=== PATIENT | male | born 1955 | race Caucasian/White ===

== ENCOUNTER → 2019-10-10 17:26 | Outpatient (CLI) | payer BC, SELFPAY ==
--- NOTE | ~2019-10-10 | XR_ITS ---
XR chest 2V 10/10/2019 17:45 Indication: Chest pain Procedure: 2 view chest Comparison: 09/27/2009 Findings: Heart size normal. There is bibasilar atelectasis. No pleural effusion or pneumothorax. The re are scattered calcified granulomas. No pleural effusion or pneumothorax. No acute osseous abnormal ity. There is diffuse idiopathic skeletal hyperostosis (DISH) of the thoracic spine. Impression: 1: Bibasilar atelectasis. Reviewed, dictated and finalized at location A. ER OPERATOR Impression: 1: Bibasilar atelectasis.
--- NOTE | ~2019-10-10 | XR_ITS ---
XR shoulder RT min 2V 10/10/2019 17:46 Indication: Right shoulder pain for 2 weeks Procedure: 4 views right shoulder Comparison: No prior studies for comparison. Findings: There are mild degenerative changes of the right acromioclavicular and glenohumeral joints. Osteopenia. Anatomic alignment. Surrounding osseous structures are unremarkable. Impression: 1: Mild polyarticular osteoarthritis. Reviewed, dictated and finalized at location A. REGATIONAL CARE PASTOR Impression: 1: Mild polyarticular osteoarthritis.
== END ==
PROVIDERS: PCP Family Medicine; Visit Provider Family Medicine
DX: M19.011 Primary osteoarthritis, right shoulder (principal); R91.8 Other nonspecific abnormal finding of lung field
CPT/HCPCS: 71046; 73030

== ENCOUNTER 2020-07-26 02:40 | Outpatient (CLI) | payer MEDICARE, OTHER, SELFPAY ==
[2020-07-26 19:51] LABS: SARS-CoV-2 RNA PCR Negative
== END 2020-07-26 02:41 | disposition home or self-care (01) ==
LOC: ANHCOVIDDT 02:40
PROVIDERS: PCP Family Medicine; Visit Provider Internal Medicine Gastroenterology
DX: Z01.812 Encounter for preprocedural laboratory examination (principal); Z20.828 Contact with and (suspected) exposure to other viral communicable diseases
CPT/HCPCS: 87635; C9803; U0003

== ENCOUNTER 2020-07-29 01:10 | Day surgery (SDC) | payer MEDICARE, OTHER, SELFPAY ==
[2020-07-22 14:35] VITALS: BMI 30.4
[2020-07-29 08:22] VITALS: BP 140/77; PULSE 66; RESP 16; TEMP 36; O2SAT 96; BMI 30.8
[2020-07-29] MEDS: LACTATED RINGERS 1,000 ML 150 ML IV CONT (08:30)
[2020-07-29 08:35] LABS: Glucose Point of Care 84 (65-105)
--- NOTE | 2020-07-29 08:49 | WPDGICN ---
Assessment and Plan Assessment and plan (1) History of colon polyps: Code(s): Z86.010 - Personal history of colonic polyps Status: Acute Assessment and Plan: Patient has a personal history of colon polyps as well as a family history of colon polyps in his father. Plan is for surveillance colonoscopy now and at least at 5 year intervals in the future. Further recommendations will be given after endoscopy. (2) Family history of colonic polyps: Code(s): Z83.71 - Family history of colonic polyps Status: Acute GI Consult Note Consult date/time: 07/29/20 08:49 HPI: Brayden Wheeler is a 65 year old male Seen in evaluation at the request of Dr. Joseph. Patient presents for screening colonoscopy. Patient's past medical history is significant for colon polyps in the past. Family history is significant that his father had colon polyps maternal aunt had colon cancer and a paternal uncle had colon cancer. Patient states that his own weight appetite bowel movements are normal. He denies abdominal pain. He has had no bleeding. Family history is noncontributory. Review of Systems Review of Systems: All systems reviewed & are unremarkable except as noted in HPI and below PMFSH Past Medical History Medical History (Updated 07/29/20 @ 08:51 by Yosi Willson MD) Right shoulder pain Family History Family History (Updated 06/28/19 @ 14:02 by DOCTOR UNKNOWN) Other Family history of arthritis Hypertension Social History Social History Years smoked: 20 Smoking status: Former smoker Tobacco type: cigarettes Smoking end date: 09/13/91 Alcohol intake: current Substance use type: does not use Gender identity (if verbalized by the patient): Male Spiritual care concerns: No Meds Home Medications and Allergies Home Medications Medication Instructions Recorded Confirmed Type amlodipine 10 mg tablet 10 mg PO DAILY #90 tablet 01/02/20 07/29/20 Rx bupropion HCl 150 mg 24 hr tablet, 150 mg PO QAM #90 tablet 01/02/20 07/29/20 Rx extended release valsartan 320 1 tablet PO DAILY #90 tablet 01/02/20 07/29/20 Rx mg-hydrochlorothiazide 12.5 mg tablet carvedilol 25 mg tablet 25 mg PO Q12H #60 tablet 02/19/20 07/29/20 Rx fenofibrate 160 mg tablet 160 mg PO DAILY #30 tablet 02/19/20 07/29/20 Rx tolterodine 4 mg capsule,extended 4 mg PO DAILY #90 cap 04/03/20 07/29/20 Rx release 24 hr lisinopril 40 mg tablet See Rx Instructions .ROUTE 06/26/20 07/29/20 Rx .COMPLEX #90 tablet escitalopram oxalate [Lexapro] 40 mg PO DAILY 07/22/20 07/29/20 History metformin 500 mg tablet,extended See Rx Instructions .ROUTE 07/26/20 07/29/20 Rx release 24 hr .COMPLEX #360 tablet Allergies Allergy/AdvReac Type Severity Reaction Status Date / Time hydrocodone AdvReac Unknown Gastrointestinal Verified 07/29/20 08:21 Upset Vital Signs Vital Signs - 24 hr 07/29/20 08:22 Temperature 96.8 F L Pulse Rate 66 Respiratory Rate 16 Blood Pressure 140/77 Pulse Oximetry 96 Exam Narrative: Exam Narrative: Physical exam reveals Vital Signs to be stable. HEENT exam unremarkable. Lungs are clear to auscultation and percussion. Heart is without murmur or extra sounds. Abdominal exam bowel sounds are present soft nontender with no organomegaly. Digital external rectal exam is normal.
--- NOTE | 2020-07-29 09:29 | WPDANESEPPF ---
Anes - Initial Pre Proc Eval Procedure: Operation Date: 07/29/20 09:30 Proposed Procedures p Screening Colonoscopy - Yosi Willson MD Date/Time: 07/29/20 09:29 Surgeon: Yosi Willson MD Pre Op Diagnosis: Hx of colon Polyps,Family Hx of colon Polyps Patient Data Age: 65 Gender: M Height: 5 ft 7 in Weight: 89.2 kg Last Vital Signs Temp 96.8 F L 07/29/20 08:22 Pulse 66 07/29/20 08:22 Resp 16 07/29/20 08:22 BP 140/77 07/29/20 08:22 Pulse Ox 96 07/29/20 08:22 Allergies Allergy/AdvReac Type Severity Reaction Status Date / Time hydrocodone AdvReac Unknown Gastrointestinal Verified 07/29/20 08:21 Upset Home Medications Medication Instructions Recorded Confirmed Type amlodipine 10 mg tablet 10 mg PO DAILY #90 tablet 01/02/20 07/29/20 Rx bupropion HCl 150 mg 24 hr tablet, 150 mg PO QAM #90 tablet 01/02/20 07/29/20 Rx extended release valsartan 320 1 tablet PO DAILY #90 tablet 01/02/20 07/29/20 Rx mg-hydrochlorothiazide 12.5 mg tablet carvedilol 25 mg tablet 25 mg PO Q12H #60 tablet 02/19/20 07/29/20 Rx fenofibrate 160 mg tablet 160 mg PO DAILY #30 tablet 02/19/20 07/29/20 Rx tolterodine 4 mg capsule,extended 4 mg PO DAILY #90 cap 04/03/20 07/29/20 Rx release 24 hr lisinopril 40 mg tablet See Rx Instructions .ROUTE 06/26/20 07/29/20 Rx .COMPLEX #90 tablet escitalopram oxalate [Lexapro] 40 mg PO DAILY 07/22/20 07/29/20 History metformin 500 mg tablet,extended See Rx Instructions .ROUTE 07/26/20 07/29/20 Rx release 24 hr .COMPLEX #360 tablet Laboratory Tests 07/29/20 08:32 POC Capillary Glucose 84 mg/dl mg/dl (65-105) Patient hx anesthesia problems: none Family hx anesthesia problems: none PMFSH Past Medical History Medical History (Updated 07/29/20 @ 09:29 by Festus Sanchez MD) Essential (primary) hypertension Mixed hyperlipidemia Right shoulder pain Type 2 diabetes mellitus without complication, without long-term current use of insulin Family History Family History (Updated 06/28/19 @ 14:02 by DOCTOR UNKNOWN) Other Family history of arthritis Hypertension Social History Social History Years smoked: 20 Smoking status: Former smoker Tobacco type: cigarettes Smoking end date: 09/13/91 Alcohol intake: current Substance use type: does not use Gender identity (if verbalized by the patient): Male Spiritual care concerns: No Anes - Eval Final PreProcedure Day of Procedure 07/29/20 09:29 Patient weight: overweight Heart: regular rate and rhythm Lungs: clear to auscultation Airway: Mallampati scale class II Neurological: alert and oriented Last oral intake: >/= 8 hours ASA classification: III Emergent: no Anesthetic plan: proceed Anesthesia type and monitoring: general GIVS and standard monitoring Informed Consent: The patient's anesthetic plan and its attendant risks and benefits were discussed with the patient/family/POA. Questions were solicited and answers provided to the satisfaction of the patient/family/POA.
[2020-07-29 09:47] VITALS: BP 129/76; PULSE 60; RESP 22; O2SAT 97
[2020-07-29 09:57] VITALS: BP 132/85; PULSE 56; RESP 18; O2SAT 96
[2020-07-29 10:07] VITALS: BP 138/78; PULSE 57; RESP 20; O2SAT 97
== END 2020-07-29 10:25 | disposition home or self-care (01) ==
PROVIDERS: PCP Family Medicine; Visit Provider Internal Medicine Gastroenterology
PROC: 0DJD8ZZ Inspection of Lower Intestinal Tract, Via Natural or Artificial Opening Endoscopic (ICD-10-PCS; CPT 45378; principal; 2020-07-29 09:30)
DX: Z12.11 Encounter for screening for malignant neoplasm of colon (principal); K64.8 Other hemorrhoids; K57.30 Diverticulosis of large intestine without perforation or abscess without bleeding; Z86.010 Personal history of colon polyps; Z83.71 Family history of colonic polyps; I10 Essential (primary) hypertension; E78.2 Mixed hyperlipidemia; E11.9 Type 2 diabetes mellitus without complications; Z79.84 Long term (current) use of oral hypoglycemic drugs; Z87.891 Personal history of nicotine dependence
CPT/HCPCS: G0105; J7120

== ENCOUNTER → 2022-07-27 15:28 | Outpatient (CLI) | payer MEDICARE, OTHER, SELFPAY ==
--- NOTE | ~2022-07-27 | XR_ITS ---
EXAMINATION: XR hip RT 2V w AP pelvis INDICATION: Right hip pain TECHNIQUE: AP view the pelvis and two views of the right hip are obtained. COMPARISON: None available FINDINGS: Bone alignment is normal. There is no fracture. There is mild osteoarthritis of the hips. P hleboliths are noted in the pelvis. There are prostatic calcifications. IMPRESSION: 1. Mild osteoarthritis of the hips. Reviewed, dictated and finalized at location F. RAMMING MANAGER
--- NOTE | ~2022-07-27 | XR_ITS ---
EXAMINATION: XR lumbar spine min 4V DATE: 07/27/2022 15:48 INDICATION: Low back pain TECHNIQUE: Anteroposterior, lateral, and bilateral oblique views of the lumbar spine, and cone-down l ateral view of the lumbosacral junction were obtained. COMPARISON: None. FINDINGS: There are 3 mm of retrolisthesis of L2 on L3 and L3 on L4 and 3 mm of anterolisthesis of L4 on L5. There is moderate loss of intervertebral disc space height at L1-2 and L5-S1. Small degenerat naa osteophytes project from the anterior endplates of multiple vertebral bodies. There is multilevel moderate facet joint osteoarthritis of the lower lumbar spine. No fracture is identified. Calcified atherosclerosis is noted. There are bridging osteophytes at multiple levels in the visualized thoraci c spine, consistent with diffuse idiopathic skeletal hyperostosis (DISH). IMPRESSION: 1. Moderate lumbar spondylosis without acute osseous abnormality. Reviewed, dictated and finalized at location F. AL CLERK
== END ==
PROVIDERS: PCP Family Medicine; Visit Provider Family Medicine
DX: M54.41 Lumbago with sciatica, right side (principal); G89.29 Other chronic pain; M47.896 Other spondylosis, lumbar region; M16.11 Unilateral primary osteoarthritis, right hip
CPT/HCPCS: 72110; 73502

== ENCOUNTER 2022-12-25 10:03 | Emergency (ER) | payer MEDICARE, OTHER, SELFPAY ==
--- NOTE | ~2022-12-25 | XR_ITS ---
[[id number] ] INDICATION: Right rib pain TECHNIQUE: Frontal projection of the upper right ribs, frontal projection of the lower right ribs, ob lique projection of all the right ribs, frontal inspiratory chest x-ray for interpretation. FINDINGS: There are no displaced rib fractures identified. There are no soft tissue abnormality see n. The lungs are clear. There are calcified granulomas in the lungs. No pneumothorax. IMPRESSION: 1:No acute displaced rib fractures. Reviewed, dictated and finalized at location B.
--- NOTE | 2022-12-25 10:14 | ED.BACK ---
HPI - Back Pain/Injury General Chief Complaint: Back Pain/Injury Stated Complaint: rt side pain Time Seen by Provider: 12/25/22 10:14 Source: patient Mode of arrival: ambulatory Limitations: no limitations History of Present Illness HPI Narrative: Mr. Wheeler is a 67-year-old male patient presenting to the clinic today with complaints of right-sided lateral rib pain. He reports he was raking leaves last week and twisted at the waist and felt a pop in his right ribs. States that he has been having ongoing pain in the right ribs since. Pain is worse with movement but not when taking a deep breath. Denies any shortness of breath or anterior chest pain. Related Data Allergies Allergy/AdvReac Type Severity Reaction Status Date / Time hydrocodone AdvReac Unknown Gastrointestinal Verified 12/25/22 10:39 Upset acetaminophen [From Vicodin] AdvReac Gastrointestinal Verified 12/25/22 10:39 Upset Review of Systems Review of Systems: Pertinent positives per HPI. Patient denies any fever, chills, rash, headache, visual changes, dizziness, cough, runny nose, sore throat, shortness of breath, chest pain, palpitations, nausea, vomiting, diarrhea, constipation, abdominal pain, or any urinary issues. [facility] Past Medical History Medical History Acute bronchitis Adult BMI 33.0-33.9 kg/sq m BMI 31.0-31.9,adult BMI 32.0-32.9,adult Body mass index (bmi) 38.0-38.9, adult (05/16/19) Chronic low back pain with right-sided sciatica X-ray of the lumbar spine on 07/27/2022 with disc space narrowing at L1-L2 and L5-S1 with moderate spondylosis. Chronic pain of right hip X-ray of the right hip and pelvis on 07/27/2022 reveals mild osteoarthritis of both hips. Contusion (~12/2021) left knee after fall COVID-19 (03/23/22) tested positive on 03/24/2022. Vaccinated. Essential (primary) hypertension Mixed hyperlipidemia Total cholesterol 193, triglycerides 173, HDL 34, LDL 130 on 12/10/2021. Obesity (BMI 30.0-34.9) Persistent microalbuminuria associated with type 2 diabetes mellitus Right shoulder pain Type 2 diabetes mellitus without complication, without long-term current use of insulin Glucose 104 and hemoglobin A1c 5.3 on 12/10/2021. Family History Family History Other Family history of arthritis Hypertension Social History Social History Years smoked: 20 Smoking status: Former smoker Tobacco type: cigarettes Smoking end date: 09/13/91 Alcohol intake: current Alcohol use details: one or two beers a year Substance use: never Substance use type: does not use Lack of Transportation: No Lack of Food: Never True Current Housing: I Have Housing Concerned About Future Housing: No Difficulty Paying Gas/Electric Bills: No Difficulty Paying for Meds: No Currently Unemployed: No Education: Master's Degree or Higher Difficulty w/ Childcare or Family Care: No Gender identity (if verbalized by the patient): Male Spiritual care concerns: No Comments At the time of my signature, I reviewed and agree with the nursing past medical, surgical, social, and family history. There is no relevant family history pertinent to the patient complaint. Exam Narrative: General: Well-developed, well nourished, in no apparent distress Head: Normocephalic, atraumatic. Cardio: Regular rate and rhythm, s1 and s2 normal, no murmur appreciated. Resp: Clear to auscultation bilaterally, no rhonchi, rales, wheezing or rubs. Musculoskeletal: No deformity, no bruising or swelling noted, tender to palpation over the right lateral rib just below the nipple line, pain worse when raising his right arm and twisting, grossly normal range of motion, muscle strength strong and equal, peripheral pulse strong, no edema, no cyanosis, normal gait and sta
[2022-12-25 10:19] VITALS: BP 130/72; PULSE 62; RESP 18; TEMP 36.9; O2SAT 94
== END 2022-12-25 10:47 | disposition home or self-care (01) ==
PROVIDERS: Emergency Provider Nurse Practitioner Family; PCP Family Medicine
DX: S29.011A Strain of muscle and tendon of front wall of thorax, initial encounter (principal); I10 Essential (primary) hypertension; E78.2 Mixed hyperlipidemia; E11.9 Type 2 diabetes mellitus without complications; Z87.891 Personal history of nicotine dependence; X50.0XXA Overexertion from strenuous movement or load, initial encounter
CPT/HCPCS: 71101; 99213; G0463

== ENCOUNTER 2023-06-05 10:02 | Inpatient (IN) | payer MEDICARE, OTHER, SELFPAY ==
[2023-06-05] VITALS (44 sets, daily range): BP systolic 104–147; BP diastolic 67–80; PULSE 70–86; RESP 12–28; TEMP 36.1–37.4; O2SAT 86–95; BMI 32.0
--- NOTE | ~2023-06-05 | XR_ITS ---
XR chest 1V portable 06/05/2023 10:49 Indication: Shortness of breath Procedure: AP portable chest Comparison: 10/10/2019 Findings: There is chronic bibasilar atelectasis/scarring. Calcified granuloma right lung base. Heart size normal. Shallow inspiration. No acute osseous abnormality. Impression: 1: Chronic bibasilar atelectasis/scarring without significant change. Reviewed, dictated and finalized at location A. Impression: 1: Chronic bibasilar atelectasis/scarring without significant change.
--- NOTE | ~2023-06-05 | CT_ITS ---
EXAMINATION: CTA chest PE protocol DATE: 06/05/2023 12:12 CDT INDICATION: Shortness of breath. Elevated d-dimer. TECHNIQUE: Computed tomographic angiography (CTA) of the chest was performed with 100 mL Omnipaque-35 0 intravenous contrast. The dose-length product was 530.30 mGy-cm. Maximum intensity projection 3D-re constructions of the aorta and other arteries were constructed by the technologist on a separate work station. Automated exposure control and iterative reconstruction technique were employed. COMPARISON: Chest dated 06/05/2023 FINDINGS: Borderline heart size. No significant pleural or pericardial effusion. There is a 1.8 cm hy perdense exophytic left renal lesion, most likely a hyperdense cyst. Recommend correlation with ultra sound. Study is technically adequate, although evaluation of lower lobe segmental and subsegmental pu lmonary arteries limited by motion and consolidation. No large central pulmonary embolism. There is m ediastinal and hilar lymphadenopathy, likely reactive. There is atherosclerosis of the aorta and clint nary arteries. There is patchy bilateral airspace consolidation predominantly in the lower lobes, alt tl there is consolidation in the right upper lobe as well, consistent with pneumonia. There is a 1 0 mm right upper lobe nodule which may represent focal consolidation although parenchymal nodule is n ot excluded. There is evidence for chronic granulomatous disease. There is nodular consolidation in t he lower lobes. No endobronchial lesion. No pneumothorax. There is a burst fracture of T10, possibly acute. Cannot exclude pathologic fracture. IMPRESSION: 1. Extensive bilateral airspace consolidation, most confluent in the lower lobes, consistent with pne umonia. There are nodular areas of consolidation with a 10 mm right upper lobe nodule present which m ay represent consolidation or parenchymal nodule. Consider follow-up low dose CT chest in 3 months. 2: No large central pulmonary embolism. 3: Mediastinal and bilateral hilar lymphadenopathy. 4: T10 burst fracture, possibly acute. Cannot exclude pathologic fracture. Correlate for history of m alignancy. Reviewed, dictated and finalized at location A. IMPRESSION: 1. Extensive bilateral airspace consolidation, most confluent in the lower lobe s, consistent with pneumonia. There are nodular areas of consolidation with a 1 0 mm right upper lobe nodule present which may represent consolidation or paren chymal nodule. Consider follow-up low dose CT chest in 3 months. 2: No large central pulmonary embolism. 3: Mediastinal and bilateral hilar lymphadenopathy. 4: T10 burst fracture, possibly acute. Cannot exclude pathologic fracture. Cooper elate for history of malignancy.
--- NOTE | 2023-06-05 10:15 | ED.GENADULT ---
HPI - General Adult General Chief complaint: Shortness of Breath/Dyspnea Stated complaint: SOB, Chest Conjestion Time Seen by Provider: 06/05/23 10:05 History of Present Illness HPI narrative: 68-year-old male presented ED for evaluation of increased shortness of breath. Patient states he just got back from vacation in [place]. Patient reports he has had increased cough and shortness of breath over the course of the last week. Patient did take a COVID test at home that was negative Related Data Home Medications Medication Instructions Recorded Confirmed cholecalciferol (vitamin D3) 50 50 mcg PO DAILY 01/12/23 01/12/23 mcg (2,000 unit) capsule mecobalamin (vitamin B12) 1,000 1,000 mcg PO DAILY 01/12/23 01/12/23 mcg chewable tablet Allergies Allergy/AdvReac Type Severity Reaction Status Date / Time hydrocodone AdvReac Unknown Gastrointestinal Verified 01/12/23 08:08 Upset acetaminophen [From Vicodin] AdvReac Gastrointestinal Verified 01/12/23 08:08 Upset Review of Systems Review of Systems: All systems reviewed & are unremarkable except as noted in HPI and below PMFSH Past Medical History Medical History (Updated 06/05/23 @ 19:40 by Dominic Bush MD) Acute bronchitis Adult BMI 33.0-33.9 kg/sq m BMI 31.0-31.9,adult BMI 32.0-32.9,adult Body mass index (bmi) 38.0-38.9, adult (05/16/19) Chronic low back pain with right-sided sciatica X-ray of the lumbar spine on 07/27/2022 with disc space narrowing at L1-L2 and L5-S1 with moderate spondylosis. Chronic pain of right hip X-ray of the right hip and pelvis on 07/27/2022 reveals mild osteoarthritis of both hips. Contusion (~12/2021) left knee after fall COVID-19 (03/23/22) tested positive on 03/24/2022. Vaccinated. Essential (primary) hypertension Mixed hyperlipidemia Total cholesterol 193, triglycerides 173, HDL 34, LDL 130 on 12/10/2021. cholesterol 134, triglycerides 118, HDL 36, LDL 78 with ratio 3.7 on 01/08/2023. Obesity (BMI 30.0-34.9) Persistent microalbuminuria associated with type 2 diabetes mellitus Right shoulder pain Rosacea Type 2 diabetes mellitus without complication, without long-term current use of insulin Glucose 104 and hemoglobin A1c 5.3 on 12/10/2021. Glucose 100 with hemoglobin A1c 5.3 on 01/08/2023. Family History Family History Other Family history of arthritis Hypertension Social History Social History Years smoked: 20 Smoking status: Former smoker Tobacco type: cigarettes Smoking end date: 09/13/91 Alcohol intake: current Alcohol use details: one or two beers a year Substance use: never Substance use type: does not use Lack of Transportation: No Lack of Food: Never True Current Housing: I Have Housing Concerned About Future Housing: No Difficulty Paying Gas/Electric Bills: No Difficulty Paying for Meds: No Currently Unemployed: No Education: Master's Degree or Higher Difficulty w/ Childcare or Family Care: No Gender identity (if verbalized by the patient): Male Spiritual care concerns: No Exam Narrative: APPEARANCE: Well appearing, no pain, no distress, well-nourished. HEAD: normocephalic, atraumatic. EYES: PERRLA/EOMI, conjunctivae clear. NOSE: Normal no drainage NECK: Supple. No adenopathy, no masses. RESPIRATORY: Rhonchi lower lobes CARDIOVASCULAR: Regular rate and rhythm without murmurs rubs or gallops. ABDOMINAL: Soft, nontender, nondistended, normal bowel sounds MUSCULOSKELETAL: Moves all extremities. Strength/ROM intact, No edema, No calf tenderness. NEURO: Alert. Cranial nerves II through XII intact. Grossly intact SKIN: Warm, dry. Normal Color Course Course Emergency Course: 68-year-old male presented ED for evaluation of worsening shortness of breath. She x-ray was ordered. COVID was ordered and D-dimer. Patient was started o
[2023-06-05] MEDS: ALBUTEROL SULFATE NEB 2.5 MG/3 ML INH 5 MG INHALATION (10:31)
[2023-06-05 10:36] LABS: Alveolar/Arterial O2 Gradient 138.1 mmHg; Fractional Inspired Oxygen 32 %; HCO3 ABG 23.4 mEq/l (22.0-26.0); Oxygen Content ABG 16.5 %vol (16.0-22.0); Oxyhemoglobin 88.4 % THb (90.0-100.0); PCO2 ABG 30.9 mmHg (35.0-45.0); PO2 ABG 53.9 mmHg (80.0-100.0); PO2 FiO2 Ratio Arterial Blood 1.68 %; Total Hemoglobin 13.3 g/dL (12.0-18.0); pH ABG 7.497 (7.350-7.450)
[2023-06-05 10:37] LABS: Device NASAL CANNULA; Modified Allen's Test Pass; Site Drawn RIGHT RADIAL
[2023-06-05 10:46] LABS: Hematocrit 38.2 % (42.0-52.0); Hemoglobin 12.7 g/dL (14.0-18.0); Mean Corpuscular HGB Conc 33.2 g/dl (32-36); Mean Corpuscular Hemoglobin 27.9 pg (26-34); Mean Platelet Volume 10.9 fl (7.4-10.4); Platelet Count Result 167 k/mm3 (150-375); Red Blood Count 4.55 M/mm3 (4.6-6.20); Red Cell Distribution Width 13.4 % (11.5-14.5); White Blood Count 10.9 K/mm3 (4.5-10.0)
[2023-06-05 10:57] LABS: INR 1.3; Prothrombin Time 17.4 Seconds (11.1-14.7)
[2023-06-05 10:58] LABS: Partial Thromboplastin Time 36.7 SECONDS (22.3-36.8)
[2023-06-05 11:00] LABS: Alanine Aminotransferase 28 U/L (6-50); Albumin Level 3.7 g/dL (3.5-5.1); Alkaline Phosphatase 50 U/L (38-126); Anion Gap 11 mmol/L (8-16); Aspartate Amino Transferase 40 U/L (17-59); Blood Urea Nitrogen 21 mg/dL (9-20); Calcium 8.2 mg/dL (8.4-10.2); Carbon Dioxide 24 mmol/L (22-30); Chloride 97 mmol/L (98-107); Estimated CRCL calculation 51 ml/min; Estimated Glomerular Filt Rate 55; Glucose 133 mg/dL (65-110); Potassium 3.5 mmol/L (3.4-5.0); Sodium 132 mmol/L (137-145)
[2023-06-05 11:03] LABS: D Dimer 3.57 ug/mL (<0.48)
[2023-06-05 11:04] LABS: NT Pro B Type Natriuretic Pept 2540 pg/mL (19.9-100)
[2023-06-05 11:14] LABS: Band Neutrophils Percent 15 % (0-6); Lymphocytes Absolute Manual 0.76 K/mm3 (1.1-4.5); Monocytes Absolute Manual 0.21 K/mm3 (0.1-0.90); Monocytes Percent Manual 2 % (3-9); Neutrophils Absolute Manual 9.91 K/mm3 (1.3-6.7); Neutrophils Percent Manual 76 % (46-73); Total Cells Counted 100
[2023-06-05 11:15] LABS: Platelet Estimate Adequate (Adequate); Schistocytes None Seen (NORMAL)
[2023-06-05 11:22] LABS: Influenza A QL RT-PCR Negative (Negative); Influenza B QL RT-PCR Negative (Negative); RSV RNA, RT-PCR Negative (Negative); SARS-CoV-2 RNA PCR Positive (Negative)
--- NOTE | 2023-06-05 11:41 | ECG_ITS ---
Measurements Intervals [place] Rate: 71 P: 20 OR: 184 QRS: -3 QRSD: 92 T: -7 QT: 420 QTc: 457 Interpretive Statements SINUS RHYTHM CONSIDER INFERIOR INFARCT, AGE INDETERMINATE BASELINE ARTIFACT- I, II, AVR ABNORMAL ECG NO PREVIOUS ECG AVAILABLE FOR COMPARISON Electronically Signed On 06-05-2023 14:42:05 CDT by Serg Mclaughlin D.O.
[2023-06-05] MEDS: DEXAMETHASONE SOD PHOS INJ 4 MG/ML VIAL IV PUSH ×2 (11:57→22:20)
[2023-06-05] MEDS: ALBUTEROL SULFATE NEB 2.5 MG/3 ML INH INHALATION (14:04)
[2023-06-05] MEDS: AZITHROMYCIN 500 MG/NS 250 ML 500 MG/250 ML BAG 250 MG IVPB (14:13)
--- NOTE | 2023-06-05 17:18 | PM.IMHP ---
H&P: HPI History of Present Illness Date/Time: 06/05/23 17:18 Chief Complaint: Difficulty breathing Narrative: This is a 68-year-old male patient with a past history of type 2 diabetes, hyperlipidemia, obesity and hypertension presents to the emergency department with shortness of breath the past week. Patient was found to be positive for COVID. D-dimer was elevated so CTA was performed. No PE but the CTA did reveal extensive bilateral airspace consolidation consistent with pneumonia. Patient was treated for concomitant bacterial pneumonia and started on dexamethasone. As patient is now requiring oxygen we will begin remdesivir. Patient denies chest pain nausea, vomiting bowel or bladder problems except chronic history frequent nocturnal urination related to prostate. CT also revealed 10 mm right upper lobe nodule which may be consolidation parenchymal nodule they recommended repeat low-dose CT in 3 months. Additionally T10 burst fracture was noted. Patient reports chronic back pain but no acute trauma or pain. Review of Systems Review of Systems: All systems reviewed & are unremarkable except as noted in HPI and below PMFSH Past Medical History Medical History Acute bronchitis Adult BMI 33.0-33.9 kg/sq m BMI 31.0-31.9,adult BMI 32.0-32.9,adult Body mass index (bmi) 38.0-38.9, adult (05/16/19) Chronic low back pain with right-sided sciatica X-ray of the lumbar spine on 07/27/2022 with disc space narrowing at L1-L2 and L5-S1 with moderate spondylosis. Chronic pain of right hip X-ray of the right hip and pelvis on 07/27/2022 reveals mild osteoarthritis of both hips. Contusion (~12/2021) left knee after fall COVID-19 (03/23/22) tested positive on 03/24/2022. Vaccinated. Essential (primary) hypertension Mixed hyperlipidemia Total cholesterol 193, triglycerides 173, HDL 34, LDL 130 on 12/10/2021. cholesterol 134, triglycerides 118, HDL 36, LDL 78 with ratio 3.7 on 01/08/2023. Obesity (BMI 30.0-34.9) Persistent microalbuminuria associated with type 2 diabetes mellitus Right shoulder pain Rosacea Type 2 diabetes mellitus without complication, without long-term current use of insulin Glucose 104 and hemoglobin A1c 5.3 on 12/10/2021. Glucose 100 with hemoglobin A1c 5.3 on 01/08/2023. Family History Family History Other Family history of arthritis Hypertension Social History Social History Smoking packs per day: 1.5 Smoking cigarettes per day: 30.0 Years smoked: 20 Smoking pack-years: 30.00 Smoking status: Former smoker Tobacco type: cigarettes Smoking end date: 09/13/91 Alcohol intake: never Alcohol use details: one or two beers a year Substance use: former Substance use type: marijuana Lack of Transportation: YES Lack of Food: Never True Current Housing: I Have Housing Concerned About Future Housing: No Difficulty Paying Gas/Electric Bills: No Difficulty Paying for Meds: No Currently Unemployed: No Education: Master's Degree or Higher Difficulty w/ Childcare or Family Care: No Gender identity (if verbalized by the patient): Male Spiritual care concerns: No Meds Home Medications and Allergies Home Medications Medication Instructions Recorded Confirmed Type carvedilol 25 mg tablet 25 mg PO Q12H #180 tabs 04/09/22 06/05/23 Rx bupropion HCl 150 mg 24 hr tablet, 150 mg PO QAM #90 tabs 07/13/22 06/05/23 Rx extended release valsartan 320 1 tablet PO DAILY #90 tabs 07/13/22 06/05/23 Rx mg-hydrochlorothiazide 12.5 mg tablet escitalopram oxalate 10 mg tablet 10 mg PO DAILY #90 tabs 11/02/22 06/05/23 Rx (Lexapro) amlodipine 10 mg tablet 15 mg PO DAILY #135 tabs 12/07/22 06/05/23 Rx atorvastatin 10 mg tablet 10 mg PO DAILY #90 tabs 12/07/22 06/05/23 Rx metformin 500 mg tablet,extended 1,
[2023-06-05 19:45] LABS: Alanine Aminotransferase 27 U/L (6-50); Estimated CRCL calculation 56 ml/min; Estimated Glomerular Filt Rate 60
[2023-06-05 19:48] LABS: INR 1.4; Prothrombin Time 18.2 Seconds (11.1-14.7)
--- NOTE | 2023-06-05 21:23 | ADMGEN ---
This patient, Brayden Wheeler, was admitted to IMU Room 202-. Patient/family oriented to hospital policies and general routines including ID bracelet, bed and alarms, visiting hours, pain management, procedures, bathroom and other care routines, personal items, smoking policy, room service/diet, and visiting hours. Information on how to activate the Rapid Response Team has been discussed. Patient/Family are encouraged to report perceived risks to care and to ask questions if they do not understand what they are told or what they should do.
[2023-06-05] MEDS: REMDESIVIR 200 MG/NS 250 ML 200 MG/250 ML BAG 250 MG IVPB (22:19)
[2023-06-05] MEDS: carvediloL 25 MG TABLET PO (23:32)
[2023-06-06] VITALS (27 sets, daily range): BP systolic 121–148; BP diastolic 62–86; PULSE 65–83; RESP 16–22; TEMP 36.3–37.2; O2SAT 91–95
[2023-06-06 00:38] LABS: Hemoglobin A1C 5.3 % (<5.7)
[2023-06-06] MEDS: DEXAMETHASONE SOD PHOS INJ 4 MG/ML VIAL IV PUSH (02:15)
[2023-06-06] MEDS: ALBUTEROL SULFATE NEB 2.5 MG/3 ML INH INHALATION ×4 (03:39→19:44)
[2023-06-06] MEDS: IPRATROPIUM BR 0.02% INH SOLN 0.5 MG/2.5 ML VIAL INHALATION ×4 (03:40→19:44)
[2023-06-06 05:05] LABS: Basophils Percent Auto 0.2 % (0.2-1.2); Hematocrit 33.3 % (42.0-52.0); Hemoglobin 11.3 g/dL (14.0-18.0); Immature Granulocyte Absolute 0.08 K/mm3 (0.00-0.031); Immature Granulocyte Percent A 0.8 % (0-0.5); Lymphocytes Absolute Auto 0.39 K/mm3 (0.9-3.2); Mean Corpuscular HGB Conc 33.9 g/dl (32-36); Mean Corpuscular Hemoglobin 28.4 pg (26-34); Mean Corpuscular Volume 83.7 fl (80-100); Monocytes Absolute Auto 0.4 K/mm3 (0.1-0.6); Monocytes Percent Auto 4.4 % (2.6-8.5); Neutrophils Absolute Auto 8.9 K/mm3 (1.3-6.7); Neutrophils Percent Auto 90.6 % (45.5-73.1); Platelet Count Result 159 k/mm3 (150-375); Red Blood Count 3.98 M/mm3 (4.6-6.20); Red Cell Distribution Width 13.3 % (11.5-14.5); White Blood Count 9.8 K/mm3 (4.5-10.0)
[2023-06-06 05:16] LABS: Alanine Aminotransferase 28 U/L (6-50); Albumin Level 3.1 g/dL (3.5-5.1); Alkaline Phosphatase 58 U/L (38-126); Anion Gap 5 mmol/L (8-16); Aspartate Amino Transferase 34 U/L (17-59); Bilirubin,Total 0.5 mg/dL (0.2-1.3); Blood Urea Nitrogen 26 mg/dL (9-20); Calcium 8.1 mg/dL (8.4-10.2); Carbon Dioxide 30 mmol/L (22-30); Chloride 99 mmol/L (98-107); Estimated CRCL calculation 52 ml/min; Estimated Glomerular Filt Rate 55; Glucose 132 mg/dL (65-110); Sodium 134 mmol/L (137-145)
[2023-06-06 05:21] LABS: INR 1.4; Prothrombin Time 18.4 Seconds (11.1-14.7)
[2023-06-06 08:13] LABS: Glucose Point of Care 132 mg/dl (65-105)
--- NOTE | 2023-06-06 10:10 | PM.IMPN ---
Progress Note: A&P Assessment and Plan (1) COVID: Onset Date: ~06/01/23 Code(s): U07.1 - COVID-19 Status: Acute Assessment and Plan: Symptoms for about 1 week and worsening, findings of significant pneumonia. Treatment with dexamethasone and remdesivir. Patient is requiring supplemental oxygenation. Wean as able. (2) Pneumonia: Code(s): J18.9 - Pneumonia, unspecified organism Status: Acute Assessment and Plan: Significant bilateral pneumonia noted, symptoms ongoing for over a week. Treatment initiated in the emergency department for concurrent bacterial pneumonia. Will continue azithromycin and ceftriaxone started 06/05 (3) Essential (primary) hypertension: Code(s): I10 - Essential (primary) hypertension Status: Acute Assessment and Plan: Stable, blood pressure reviewed on 06/06 Resume home medications (4) Mixed hyperlipidemia: Code(s): E78.2 - Mixed hyperlipidemia Status: Acute Assessment and Plan: Resume home medications (5) Type 2 diabetes mellitus without complication, without long-term current use of insulin: Code(s): E11.9 - Type 2 diabetes mellitus without complications Status: Acute Assessment and Plan: ACHS fingerstick glucose with sliding scale insulin and hold metformin Blood glucose reviewed 06/06 (6) NO on CPAP: Code(s): G47.33 - Obstructive sleep apnea (adult) (pediatric); Z99.89 - Dependence on other enabling machines and devices Status: Acute Assessment and Plan: Ordered autoPAP (7) Nocturia: Code(s): R35.1 - Nocturia Status: Acute Assessment and Plan: 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 No overnight events noted. No nausea, vomiting or diarrhea. No fevers or chills. C/o continued SOB, no CP. Review of Systems Review of Systems: 12 point review of systems was assessed and was negative except as noted in the HPI Exam Narrative: General: No acute distress, alert and oriented per baseline HEENT: Atraumatic, normocephalic, mucous membranes moist CV: Regular rate and rhythm, S1, S2 Lungs: Scattered fine crackles, diminished at bases, no wheeze Abdomen: Soft, nontender, nondistended Extremities: Normal to inspection Skin: No rashes noted, no lesions or wounds seen Psych: Euthymic, normal affect Objective Data Vital Signs Vital Signs: Vital Signs - 24 hr 06/05/23 10:12 06/05/23 10:12 06/05/23 10:26 Temperature Pulse Rate 86 78 Respiratory Rate 18 Blood Pressure 104/67 Pulse Oximetry 92 92 Oxygen Delivery Nasal Cannula Oxygen Flow Rate 3 06/05/23 10:26 06/05/23 10:44 06/05/23 10:11 Temperature Pulse Rate 78 86 Respiratory Rate 18 18 Blood Pressure Pulse Oximetry 90 Oxygen Delivery Oxygen Flow Rate 06/05/23 10:15 06/05/23 10:25 06/05/23 10:30 Temperature Pulse Rate Respiratory Rate Blood Pressure 104/67 Pulse Oximetry 86 L 91 89 L Oxygen Delivery Oxygen Flow Rate 06/05/23 10:31 06/05/23 10:49 06/05/23 11:03 Temperature Pulse Rate 76 Respiratory Rate 22 H Blood Pressure 114/71 Pulse Oximetry 93 90 90 Oxygen Delivery Oxygen Flow Rate 06/05/23 11:19 06/05/23 11:39 06/05/23 11:45 Temperature Pulse Rate 80 77 Respiratory Rate 20 20 Blood Pressure 106/72 Pulse Oximetry 90 90 92 Oxygen Delivery Oxygen Flow Rate 06/05/23 14:04 06/05/23 14:00 06/05/23 14:11 Temperature Pulse Rate 77 Respiratory Rate 20 20 Blood Pressure Pulse Oximetry 92 Oxygen Delivery Nasal
[2023-06-06] MEDS: DEXAMETHASONE 2 MG TABLET 6 MG PO (10:42)
[2023-06-06] MEDS: carvediloL 25 MG TABLET PO ×2 (10:43→20:32)
[2023-06-06] MEDS: VALSARTAN 160 MG TABLET 320 MG PO (10:43)
[2023-06-06] MEDS: metFORMIN HCL XR 500 MG TAB.SR.24H 1000 MG PO (10:43)
[2023-06-06] MEDS: ATORVASTATIN 10 MG TABLET PO (10:44)
[2023-06-06] MEDS: CHOLECALCIFEROL 1,000 UNITS TABLET 2000 UNITS PO (10:44)
[2023-06-06] MEDS: oxyBUTYnin CHLORIDE XL 5 MG TAB.ER.24 10 MG PO (10:44)
[2023-06-06] MEDS: CYANOCOBALAMIN 1,000 MCG TABLET 1000 MCG PO (10:44)
[2023-06-06] MEDS: ESCITALOPRAM OXALATE 10 MG TABLET PO (10:44)
[2023-06-06] MEDS: buPROPion HCL XL (24 HR) 150 MG TABCR PO (10:45)
[2023-06-06] MEDS: hydroCHLOROthiazide 12.5 MG CAPSULE PO (10:45)
[2023-06-06] MEDS: amLODIPine BESYLATE 5 MG TABLET 15 MG PO (10:45)
[2023-06-06] MEDS: ENOXAPARIN 40 MG/0.4 ML SYRINGE SUB-Q (10:45)
[2023-06-06] MEDS: POTASSIUM CHLORIDE 20 MEQ ER TABLET 80 MEQ PO (10:46)
[2023-06-06] MEDS: FENOFIBRATE 160 MG TABLET PO (10:46)
[2023-06-06 11:57] LABS: Glucose Point of Care 164 mg/dl (65-105)
[2023-06-06] MEDS: AZITHROMYCIN 500 MG/NS 250 ML 500 MG/250 ML BAG 250 MG IVPB (13:12)
[2023-06-06 16:42] LABS: Glucose Point of Care 146 mg/dl (65-105)
[2023-06-06] MEDS: REMDESIVIR 100 MG/NS 250 ML 100 MG/250 ML BAG 250 MG IVPB (21:10)
[2023-06-06 21:13] LABS: Glucose Point of Care 179 mg/dl (65-105)
[2023-06-07] VITALS (27 sets, daily range): BP systolic 116–156; BP diastolic 65–85; PULSE 65–98; RESP 18–22; TEMP 35.6–36.7; O2SAT 91–98
[2023-06-07] MEDS: ALBUTEROL SULFATE NEB 2.5 MG/3 ML INH INHALATION ×4 (02:06→20:53)
[2023-06-07] MEDS: IPRATROPIUM BR 0.02% INH SOLN 0.5 MG/2.5 ML VIAL INHALATION ×4 (02:06→20:53)
[2023-06-07 05:01] LABS: Basophils Percent Auto 0.3 % (0.2-1.2); Hemoglobin 11.6 g/dL (14.0-18.0); Immature Granulocyte Absolute 0.22 K/mm3 (0.00-0.031); Immature Granulocyte Percent A 1.9 % (0-0.5); Lymphocytes Absolute Auto 0.51 K/mm3 (0.9-3.2); Lymphocytes Percent Auto 4.4 % (18.3-44.2); Mean Corpuscular HGB Conc 33.1 g/dl (32-36); Mean Corpuscular Hemoglobin 28.4 pg (26-34); Mean Corpuscular Volume 85.6 fl (80-100); Mean Platelet Volume 10.9 fl (7.4-10.4); Monocytes Absolute Auto 0.6 K/mm3 (0.1-0.6); Monocytes Percent Auto 5.5 % (2.6-8.5); Neutrophils Absolute Auto 10.1 K/mm3 (1.3-6.7); Neutrophils Percent Auto 87.9 % (45.5-73.1); Platelet Count Result 188 k/mm3 (150-375); Red Blood Count 4.09 M/mm3 (4.6-6.20); Red Cell Distribution Width 13.8 % (11.5-14.5); White Blood Count 11.5 K/mm3 (4.5-10.0)
[2023-06-07 05:12] LABS: Alanine Aminotransferase 29 U/L (6-50); Alkaline Phosphatase 60 U/L (38-126); Anion Gap 9 mmol/L (8-16); Aspartate Amino Transferase 35 U/L (17-59); Bilirubin,Total 0.5 mg/dL (0.2-1.3); Blood Urea Nitrogen 43 mg/dL (9-20); Calcium 8.1 mg/dL (8.4-10.2); Carbon Dioxide 23 mmol/L (22-30); Chloride 104 mmol/L (98-107); Estimated CRCL calculation 49 ml/min; Estimated Glomerular Filt Rate 50; Glucose 135 mg/dL (65-110); INR 1.2; Potassium 3.1 mmol/L (3.4-5.0); Sodium 136 mmol/L (137-145)
--- NOTE | 2023-06-07 08:45 | PM.IMPN ---
Progress Note: A&P Assessment and Plan (1) COVID: Onset Date: ~06/01/23 Code(s): U07.1 - COVID-19 Status: Acute Assessment and Plan: Symptoms for about 1 week and worsening, findings of significant pneumonia. Treatment with dexamethasone and remdesivir, started 06/06 Patient is requiring supplemental oxygenation. Wean as able. (2) Pneumonia: Code(s): J18.9 - Pneumonia, unspecified organism Status: Acute Assessment and Plan: Significant bilateral pneumonia noted, symptoms ongoing for over a week. Treatment initiated in the emergency department for concurrent bacterial pneumonia. Will continue azithromycin and ceftriaxone started 06/05 (3) Essential (primary) hypertension: Code(s): I10 - Essential (primary) hypertension Status: Acute Assessment and Plan: Stable, blood pressure reviewed on 06/07 Resume home medications (4) Mixed hyperlipidemia: Code(s): E78.2 - Mixed hyperlipidemia Status: Acute Assessment and Plan: Resume home medications (5) Type 2 diabetes mellitus without complication, without long-term current use of insulin: Code(s): E11.9 - Type 2 diabetes mellitus without complications Status: Acute Assessment and Plan: ACHS fingerstick glucose with sliding scale insulin and hold metformin Blood glucose reviewed 06/07 (6) NO on CPAP: Code(s): G47.33 - Obstructive sleep apnea (adult) (pediatric); Z99.89 - Dependence on other enabling machines and devices Status: Acute Assessment and Plan: Ordered autoPAP (7) Nocturia: Code(s): R35.1 - Nocturia Status: Acute Assessment and Plan: 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 No overnight events noted. No nausea, vomiting or diarrhea. No fevers or chills. Review of Systems Review of Systems: 12 point review of systems was assessed and was negative except as noted in the HPI Exam Narrative: General: No acute distress, alert and oriented per baseline HEENT: Atraumatic, normocephalic, mucous membranes moist CV: Regular rate and rhythm, S1, S2 Lungs: Scattered fine crackles, diminished at bases, no wheeze Abdomen: Soft, nontender, nondistended Extremities: Normal to inspection Skin: No rashes noted, no lesions or wounds seen Psych: Euthymic, normal affect Objective Data Vital Signs Vital Signs: Vital Signs - 24 hr 06/06/23 10:00 06/06/23 10:12 06/06/23 10:13 Temperature Pulse Rate 82 78 Respiratory Rate 18 18 Blood Pressure Pulse Oximetry 93 Oxygen Delivery Nasal Cannula Oxygen Flow Rate 4 06/06/23 10:43 06/06/23 11:51 06/06/23 14:40 Temperature 97.4 F L Pulse Rate 78 83 72 Respiratory Rate 18 18 Blood Pressure 126/75 Pulse Oximetry 95 Oxygen Delivery Oxygen Flow Rate 06/06/23 15:00 06/06/23 16:00 06/06/23 12:00 Temperature 97.9 F Pulse Rate 78 77 Respiratory Rate 18 16 Blood Pressure 121/69 Pulse Oximetry 92 92 Oxygen Delivery Autopap Oxygen Flow Rate 5 06/06/23 16:00 06/06/23 10:00 06/06/23 12:00 Temperature Pulse Rate 80 82 Respiratory Rate Blood Pressure Pulse Oximetry 95 Oxygen Delivery Autopap Oxygen Flow Rate 5 06/06/23 14:00 06/06/23 16:00 06/06/23 18:00 Temperature Pulse Rate 82 79 71 Respiratory Rate Blood Pressure P
[2023-06-07] MEDS: carvediloL 25 MG TABLET PO ×2 (09:08→21:15)
[2023-06-07] MEDS: ENOXAPARIN 40 MG/0.4 ML SYRINGE SUB-Q (09:08)
[2023-06-07] MEDS: DEXAMETHASONE 2 MG TABLET 6 MG PO (09:08)
[2023-06-07] MEDS: VALSARTAN 160 MG TABLET 320 MG PO (09:08)
[2023-06-07] MEDS: amLODIPine BESYLATE 5 MG TABLET 15 MG PO (09:08)
[2023-06-07] MEDS: FENOFIBRATE 160 MG TABLET PO (09:08)
[2023-06-07] MEDS: hydroCHLOROthiazide 12.5 MG CAPSULE PO (09:09)
[2023-06-07] MEDS: PANTOPRAZOLE 40 MG TABLET PO (09:09)
[2023-06-07] MEDS: ATORVASTATIN 10 MG TABLET PO (09:09)
[2023-06-07] MEDS: buPROPion HCL XL (24 HR) 150 MG TABCR PO (09:09)
[2023-06-07] MEDS: CHOLECALCIFEROL 1,000 UNITS TABLET 2000 UNITS PO (09:09)
[2023-06-07] MEDS: CYANOCOBALAMIN 1,000 MCG TABLET 1000 MCG PO (09:09)
[2023-06-07] MEDS: ESCITALOPRAM OXALATE 10 MG TABLET PO (09:10)
[2023-06-07] MEDS: oxyBUTYnin CHLORIDE XL 5 MG TAB.ER.24 10 MG PO (09:10)
[2023-06-07 09:11] LABS: Glucose Point of Care 121 mg/dl (65-105)
[2023-06-07] MEDS: POTASSIUM CHLORIDE 20 MEQ ER TABLET 40 MEQ PO (12:24)
[2023-06-07] MEDS: SODIUM CHLORIDE 0.9% IV 1,000 ML 999 ML IV CONT (12:24)
[2023-06-07] MEDS: AZITHROMYCIN 500 MG/NS 250 ML 500 MG/250 ML BAG 250 MG IVPB (13:57)
[2023-06-07 14:11] LABS: Glucose Point of Care 156 mg/dl (65-105)
[2023-06-07 14:24] LABS: Anion Gap 9 mmol/L (8-16); Blood Urea Nitrogen 40 mg/dL (9-20); Calcium 8.4 mg/dL (8.4-10.2); Carbon Dioxide 22 mmol/L (22-30); Chloride 106 mmol/L (98-107); Estimated CRCL calculation 52 ml/min; Estimated Glomerular Filt Rate 55; Glucose 136 mg/dL (65-110); Potassium 3.5 mmol/L (3.4-5.0); Sodium 137 mmol/L (137-145)
[2023-06-07 17:52] LABS: Glucose Point of Care 133 mg/dl (65-105)
[2023-06-07] MEDS: REMDESIVIR 100 MG/NS 250 ML 100 MG/250 ML BAG 250 MG IVPB (21:15)
[2023-06-07 21:31] LABS: Glucose Point of Care 171 mg/dl (65-105)
[2023-06-08] VITALS (23 sets, daily range): BP systolic 122–144; BP diastolic 70–79; PULSE 59–99; RESP 18–20; TEMP 36.1–36.6; O2SAT 87–98
[2023-06-08] MEDS: IPRATROPIUM BR 0.02% INH SOLN 0.5 MG/2.5 ML VIAL INHALATION ×3 (02:37→14:24)
[2023-06-08] MEDS: ALBUTEROL SULFATE NEB 2.5 MG/3 ML INH INHALATION ×3 (02:37→14:24)
[2023-06-08 05:37] LABS: Basophils Absolute Auto 0.1 K/mm3 (0.0-0.1); Basophils Percent Auto 0.6 % (0.2-1.2); Hematocrit 33.8 % (42.0-52.0); Hemoglobin 11.3 g/dL (14.0-18.0); Immature Granulocyte Absolute 0.52 K/mm3 (0.00-0.031); Immature Granulocyte Percent A 4.6 % (0-0.5); Lymphocytes Absolute Auto 0.66 K/mm3 (0.9-3.2); Lymphocytes Percent Auto 5.8 % (18.3-44.2); Mean Corpuscular HGB Conc 33.4 g/dl (32-36); Mean Corpuscular Hemoglobin 28.1 pg (26-34); Mean Corpuscular Volume 84.1 fl (80-100); Mean Platelet Volume 11.1 fl (7.4-10.4); Monocytes Absolute Auto 0.7 K/mm3 (0.1-0.6); Monocytes Percent Auto 5.9 % (2.6-8.5); Neutrophils Absolute Auto 9.4 K/mm3 (1.3-6.7); Neutrophils Percent Auto 83.1 % (45.5-73.1); Platelet Count Result 219 k/mm3 (150-375); Red Blood Count 4.02 M/mm3 (4.6-6.20); Red Cell Distribution Width 13.9 % (11.5-14.5); White Blood Count 11.3 K/mm3 (4.5-10.0)
[2023-06-08 05:45] LABS: INR 1.2; Prothrombin Time 15.6 Seconds (11.1-14.7)
[2023-06-08 05:56] LABS: Alanine Aminotransferase 30 U/L (6-50); Albumin Level 2.8 g/dL (3.5-5.1); Alkaline Phosphatase 49 U/L (38-126); Anion Gap 10 mmol/L (8-16); Aspartate Amino Transferase 40 U/L (17-59); Bilirubin,Total 0.5 mg/dL (0.2-1.3); Blood Urea Nitrogen 36 mg/dL (9-20); Calcium 7.9 mg/dL (8.4-10.2); Carbon Dioxide 23 mmol/L (22-30); Chloride 108 mmol/L (98-107); Estimated CRCL calculation 56 ml/min; Estimated Glomerular Filt Rate 60; Glucose 128 mg/dL (65-110); Potassium 3.3 mmol/L (3.4-5.0); Sodium 141 mmol/L (137-145)
[2023-06-08 08:09] LABS: Glucose Point of Care 122 mg/dl (65-105)
[2023-06-08] MEDS: DEXAMETHASONE 2 MG TABLET 6 MG PO (09:07)
[2023-06-08] MEDS: oxyBUTYnin CHLORIDE XL 5 MG TAB.ER.24 10 MG PO (09:07)
[2023-06-08] MEDS: CHOLECALCIFEROL 1,000 UNITS TABLET 2000 UNITS PO (09:07)
[2023-06-08] MEDS: carvediloL 25 MG TABLET PO (09:07)
[2023-06-08] MEDS: FENOFIBRATE 160 MG TABLET PO (09:08)
[2023-06-08] MEDS: buPROPion HCL XL (24 HR) 150 MG TABCR PO (09:08)
[2023-06-08] MEDS: amLODIPine BESYLATE 5 MG TABLET 15 MG PO (09:08)
[2023-06-08] MEDS: CYANOCOBALAMIN 1,000 MCG TABLET 1000 MCG PO (09:08)
[2023-06-08] MEDS: VALSARTAN 160 MG TABLET 320 MG PO (09:08)
[2023-06-08] MEDS: ATORVASTATIN 10 MG TABLET PO (09:08)
[2023-06-08] MEDS: PANTOPRAZOLE 40 MG TABLET PO (09:08)
[2023-06-08] MEDS: ESCITALOPRAM OXALATE 10 MG TABLET PO (09:08)
[2023-06-08] MEDS: hydroCHLOROthiazide 12.5 MG CAPSULE PO (09:08)
[2023-06-08] MEDS: ENOXAPARIN 40 MG/0.4 ML SYRINGE SUB-Q (09:09)
[2023-06-08 12:11] LABS: Glucose Point of Care 129 mg/dl (65-105)
[2023-06-08] MEDS: AZITHROMYCIN 500 MG/NS 250 ML 500 MG/250 ML BAG 250 MG IVPB (13:37)
--- NOTE | 2023-06-08 15:00 | PM.DS ---
DS: Admitting Diagnosis Discharge Date 06/08/23 Admitting Diagnosis sob DS: Discharge Diagnosis Discharge Diagnosis (1) COVID: Onset Date: ~06/01/23 Code(s): U07.1 - COVID-19 Status: Acute Assessment and Plan: Symptoms for about 1 week and worsening, findings of significant pneumonia. Treatment with dexamethasone and remdesivir, started 06/06 Patient is requiring supplemental oxygenation. Wean as able. (2) Pneumonia: Code(s): J18.9 - Pneumonia, unspecified organism Status: Acute Assessment and Plan: Significant bilateral pneumonia noted, symptoms ongoing for over a week. Treatment initiated in the emergency department for concurrent bacterial pneumonia. Will continue azithromycin and ceftriaxone started 06/05 (3) Essential (primary) hypertension: Code(s): I10 - Essential (primary) hypertension Status: Acute Assessment and Plan: Stable, blood pressure reviewed on 06/07 Resume home medications (4) Mixed hyperlipidemia: Code(s): E78.2 - Mixed hyperlipidemia Status: Acute Assessment and Plan: Resume home medications (5) Type 2 diabetes mellitus without complication, without long-term current use of insulin: Code(s): E11.9 - Type 2 diabetes mellitus without complications Status: Acute Assessment and Plan: ACHS fingerstick glucose with sliding scale insulin and hold metformin Blood glucose reviewed 06/07 (6) NO on CPAP: Code(s): G47.33 - Obstructive sleep apnea (adult) (pediatric); Z99.89 - Dependence on other enabling machines and devices Status: Acute Assessment and Plan: Ordered autoPAP (7) Nocturia: Code(s): R35.1 - Nocturia Status: Acute Assessment and Plan: 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 Symptoms for about 1 week and worsening, findings of significant pneumonia.? Treatment with dexamethasone and remdesivir, started 06/06 Patient is requiring supplemental oxygenation.? Wean as able. Significant bilateral pneumonia noted, symptoms ongoing for over a week.? Treatment initiated in the emergency department for concurrent bacterial pneumonia.? Will continue azithromycin and ceftriaxone started 06/05 All symptoms resolved and patient was discharged in stable condition with close outpatient follow-up. Please see above and med rec for details. Time Spent with Patient Time attestation: Total time spent providing and/or coordinating discharge services: Exam Narrative: General: No acute distress, alert and oriented per baseline HEENT: Atraumatic, normocephalic, mucous membranes moist CV: Regular rate and rhythm, S1, S2 Lungs: Scattered fine crackles, diminished at bases, no wheeze Abdomen: Soft, nontender, nondistended Extremities: Normal to inspection Skin: No rashes noted, no lesions or wounds seen Psych: Euthymic, normal affect DS: Data Data Completed and Pending Labs on day of discharge: Labs from last 24 hours 06/08/23 06/08/23 06/08/23 12:04 07:38 04:59 WBC 11.3 H RBC 4.02 L Hgb 11.3 L Hct 33.8 L MCV 84.1 MCH 28.1 MCHC 33.4 RDW 13.9 Plt Count 219 MPV 11.1 H Immature Gran % (Auto) 4.6 H Neut % (Auto) 83.1 H Lymph % (Auto) 5.8 L Stearns % (Auto) 5.9 Eos % (Auto) 0.0 Baso % (Auto) 0.6 Lymph # (Auto) 0.66 L Stearns # (Auto) 0.7 H Eos # (A
--- NOTE | 2023-06-08 15:20 | HOMEO2EVAL ---
Evaluation was performed at [facility] Home Oxygen Evaluation RC: Home Oxygen (O2) Evaluation Start: 06/07/23 14:45 Freq: ONCE Status: Active Protocol: RPE Activity Type Activity Date Activity User E-sign Co-sign Detail Recorded Client Recorded Date Recorded By Document 06/08/23 15:00 CATRINA [email or web address] 06/08/23 15:20 CATRINA Document 06/08/23 15:01 [email or web address] [email or web address] 06/08/23 15:20 CATRINA Document 06/08/23 15:02 [email or web address] [email or web address] 06/08/23 15:20 CATRINA Document 06/08/23 15:03 [email or web address] [email or web address] 06/08/23 15:20 CATRINA Document 06/08/23 15:10 [email or web address] [email or web address] 06/08/23 15:20 CATRINA Document 06/08/23 15:15 CATRINA [email or web address] 06/08/23 15:20 CATRINA 06/08/23 06/08/23 06/08/23 15:00 15:01 15:02 Home O2 Evaluation [Oxygen] -Test Phase Resting Resting Resting -Oxygen Delivery Room Air Nasal Cannula Nasal Cannula -Oxygen Flow Rate (L/min) 1 2 [Pulse Oximetry] -Pulse Oximetry (90-100 %) 87 L 87 L 87 L [Pulse Rate] -Pulse Rate (60-100 beats/min) 89 [Comments] -Home Oxygen Evaluation Comments [Charges] -Treatment Charges O2 Evaluation - Inpatient 06/08/23 06/08/23 06/08/23 15:03 15:10 15:15 Home O2 Evaluation [Oxygen] -Test Phase Resting Exercise Resting -Oxygen Delivery Nasal Cannula Nasal Cannula Nasal Cannula -Oxygen Flow Rate (L/min) 3 3 3 [Pulse Oximetry] -Pulse Oximetry (90-100 %) 92 90 94 [Pulse Rate] -Pulse Rate (60-100 beats/min) 99 82 [Comments] -Home Oxygen Evaluation Comments PT REQUIRES 3 L HOME O2 WITH REST AND ACTIVITY [Charges] -Treatment Charges
--- NOTE | 2023-06-08 15:30 | PCRCNOTE ---
HOME O2 EVAL COMPLETED. PT REQUIRES 3 L REST AND ACTIVITY. PT HAS CPAP WITH [facility], WILL ARRANGE HOME O2 WITH [facility] WELL. O2 TANK FOR TRANSPORT HOME WILL BE IN OR OUTSIDE OF PATIENT ROOM. ALL PAPERWORK AND ORDER ARE FAXED AND CALLED NELLY WITH [facility] TO UPDATE, ANTICIPATE D/C TODAY.
== END 2023-06-08 18:59 | disposition home or self-care (01) | DRG 177 ==
LOC: ANHED 10:40 → ANHIMU 13:02
PROVIDERS: Nurse Practitioner; Admitting Provider Chiropractor; Emergency Provider Emergency Medicine; PCP Family Medicine; Visit Provider Student in an Organized Health Care Education/Training Program
DX: U07.1 COVID-19 (principal); J12.82 Pneumonia due to coronavirus disease 2019; J15.9 Unspecified bacterial pneumonia; N17.9 Acute kidney failure, unspecified; I10 Essential (primary) hypertension; E78.2 Mixed hyperlipidemia; E11.9 Type 2 diabetes mellitus without complications; G47.33 Obstructive sleep apnea (adult) (pediatric); R35.1 Nocturia; E86.0 Dehydration; E66.9 Obesity, unspecified; M47.897 Other spondylosis, lumbosacral region; M16.0 Bilateral primary osteoarthritis of hip; Z87.891 Personal history of nicotine dependence; Z68.32 Body mass index [BMI] 32.0-32.9, adult; Z86.16 Personal history of COVID-19
CPT/HCPCS: 36415; 36600; 71045; 71275; 80048; 80053; 82565; 82805; 82948; 83036; 83880; 84460; 85025; 85380; 85610; 85730; 87040; 87070; 87205; 87637; 93005; 94618; 94640; 96365; 96367; 96372; 96375; 96376; 97161; 97165; 99285; A9270; G0378; J0248; J0456; J0696; J1100; J1650; J7030; J8540; Q9967

== ENCOUNTER 2023-10-04 14:18 | Outpatient (CLI) | payer MEDICARE, OTHER, SELFPAY ==
--- NOTE | ~2023-10-04 | CT_ITS ---
EXAMINATION:CT diagnostic chest wo con DATE: 10/04/2023 14:39 INDICATION: Abnormal findings on diagnostic imaging. TECHNIQUE: Computed tomography (CT) of the chest was performed without intravenous contrast. Automate d exposure control and iterative reconstruction technique were employed. The dose-length product (DLP ) was 239.09 mGy-cm. COMPARISON: Chest CT 06/05/2023, chest single view 06/05/2023 FINDINGS: Calcified pulmonary nodules and calcified hilar lymph nodes are consistent with old granulo matous disease. There is mild atelectasis in the inferior lungs. No pleural effusion. The heart size is normal. There are coronary artery calcifications. No pericardial effusion. There is a macrocalcifi cation in right thyroid lobe. There are bridging endplate osteophytes at multiple levels in the spine , consistent with diffuse idiopathic skeletal hyperostosis (DISH). At T10, there is a chronic ununite d compression fracture. IMPRESSION: 1. Interval resolution of the previously described right upper lobe pulmonary nodule. Reviewed, dictated and finalized at location E. SHING MACHINE TENDER IMPRESSION: 1. Interval resolution of the previously described right upper lobe pulmonary n odule.
== END 2023-10-04 14:19 | disposition home or self-care (01) ==
PROVIDERS: PCP Family Medicine; Visit Provider Nurse Practitioner Family
DX: R91.1 Solitary pulmonary nodule (principal)
CPT/HCPCS: 71250

== ENCOUNTER → 2025-05-07 09:17 | Outpatient (CLI) | payer MEDICARE, OTHER, SELFPAY ==
--- NOTE | ~2025-05-07 | XR_ITS ---
XR hip RT min 2V 05/07/2025 09:45 Indication: Right hip pain Procedure: 2 views right hip Comparison: 07/27/2022 Findings: Mild-moderate osteoarthritis of the right hip. No fracture or traumatic malalignment. Mild osteitis pubis. Impression: 1: No acute fracture. Reviewed, dictated and finalized at location O. Impression: 1: No acute fracture.
--- NOTE | ~2025-05-07 | XR_ITS ---
XR lumbar spine min 4V 05/07/2025 09:45 Indication: Low back pain Procedure: 5 views lumbar spine Comparison: 07/27/2022 Findings: There is stable sclerosis of L1 without significant change, likely representing a bone island given the lack of change. There is disc narrowing at all lumbar levels. There is degenerative retrolisthesis at L3-4 with anterolisthesis at L4-5 and L5-S1. Prominent bridging osteophytes at T12-L1. There is dextroscoliosis. Impression: 1: Severe lumbar spondylosis. 2: Stable sclerosis of L1 vertebral body. Given the lack of interval change this likely represents benign bone island. Reviewed, dictated and finalized at location O. Impression: 1: Severe lumbar spondylosis. 2: Stable sclerosis of L1 vertebral body. Given the lack of interval change thi s likely represents benign bone island.
--- OUTSIDE RECORDS SUMMARY | 2025-05-07 09:53 | XMS_ITS | Encounter Summary ---
Author Organization [facility] Address [address] [place] [address] Care Team Providers Care Equine Breeder Name Role Phone Jasmeet Joseph MD Primary Care Provider [phone] Encounter Details Date Type Department Care Team (Late st Contact Info) Description 08/02/2018 Lab Requisition [facility] Care DermPath Lab [address] [place] [address] Davon Parikh MD [address] [place] [id number] Social History Tobacco Use Types Packs/Day Years Used Date Smoking Tobacco: Never Assessed Sex and Gender Information Value Date Recorded Sex Assigned at Not on file Legal Sex Male 6:36 PM NUT GRINDER Gender Identity Not on file Sexual Orientation Not on file documented as of this encounter Plan of Treatment Not on file documented as of this encounter Procedures Procedure Name Priority Date/Time Associated Diagnosis Comments DERMATOPATHOLOGY Routine 08/01/2018 12:0 0 AM NUT GRINDER documented in this encounter Results * DERMATOPATHOLOGY (08/01/2018 12:00 AM NUT GRINDER) Case Report Dermatopathology Report Case: [id number] Authorizing Provider: Davon Parikh MD Collected: 08/01/2018 12:00 AM Pathologist: Carlie Laureano MD Received: 08/02/2018 11:52 AM Specimen: Skin, left lateral lower eyelid 8 12:32 PM N[facility] DERMATOPATHOLOGY LABORAT[facility] Final Diagnosis Specimen A. 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 The specimen consists of a punch biopsy measuring 3x2x2 mm. Jar 0. 12:32 PM [facility] DERMATOPATH[facility] Microscopic Description Specimen A. SKIN, left lateral lower eyelid: There is focal parakeratosis and mild spongiosis of the epidermis. A mild perivascular and perifollicular inflammatory infiltrate composed predominantly of lymphocytes with scattered neutrophils is noted in the upper and mid dermis. Dilated thin-walled superficial dermal blood vessels are observed. Solar elastosis and dermal edema are present. PAS stain is negative for fungus or a thickened basement membrane. Gram stain is negative for bacteria. Colloidal iron fails to reveal increased dermal mucin. COMMENT: The histologic differential diagnosis includes rosacea, periorificial dermatitis and a chronic eczematous dermatitis. The dermal edema could represent an element of solid facial edema and, given the presence of neutrophils, cellulitis could be a additional consideration. Clinicopathologic correlation is recommended. 12:32 PM [facility]ERMATOPATH[facility] Disclaimer An external and internal positive and negative controls are appropriate for the histochemical, immunohistochemical and immunofluorescence stain(s) in this case (if any), except where stated explicitly. The performance characteristics of the stain(s) cited in this report were developed and its performance characteristic determined by the Dermatopathology Laboratory at [facility]. These tests need not be, and therefore are not, approved by the [place] Food and Drug Administration. The tests are used for clinical purposes. Billing Codes Specimen Charges Stain Charges 39168 1 [id number] 1 1 1 12:32 PM [facility] DERMATOPATH[facility]Y [facility] Embedded Images 12:32 PM [facility]MAT[facility] Pathology/Cytolog y TISSUE SPECIMEN FROM SKIN / Unknown 08/01/2018 08/02/2018 11:52 AM [facility] Davon Parikh MD LAB - PATHOLOGY/CYTOLOGY ORD ERABLES Final Result DERMATOPATHOLOGY LABORATORY [facility] - Department of Dermatology [facility] [facility] 5th Floor Lab [address] [phone] documented in this encounter Visit Diagnoses Not on filedocumented in this encounter Care Teams Equine Breeder Relationship Specialty Start Date End Date Jasmeet Joseph MD PCP - General 11/16/13 documented as of this encounter
--- OUTSIDE RECORDS SUMMARY | 2025-05-07 09:53 | XMS_ITS | Clinical Summary ---
Author Organization [facility] Address [address] [place] [address] Care Team Providers Care Software Configuration Manager Name Role Phone Jasmeet Joseph MD Primary Care Provider [phone] Source Comments [facility],non-owned Affiliates and Associated Physician Practices is amultiple site organization consisting of ambulatory clinics and hospital sitesin [place], [place], [place] and [place]. This disclosure is being madepursuant to the Care Everywhere program and may not contain all information available regarding this patient. 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 Gender Identity Not on file Sexual Orientation Not on file Plan of Treatment Health Maintenance Due Date Last Done Comments COLOGUARD (AGES 45-75) - COL ON CA SCREENING 1954 COLON MONITORING 1954 COLONOSCOPY - COLON CA SCREENING 1954 CT COLONOGRAPHY - COLON CA SCREENING 1954 Colorectal Cancer Screening 1954 FIT - COLON CA SCREENING 1954 FLEX SIG - COLON CA SCREENING 1954 LIPID TESTING 1954 HEPATITIS C SCREENING 05/03/1972 DTAP/TDAP/TD VACCINES (1 - Tdap) 1973 PNEUMOCOCCAL VACCINE 50+ (1 of 1 - PCV) 2004 ZOSTER VACCINE (1 of 2) 2004 COVID-19 VACCINE ( - 2023-2 5 season) 2024 DEPRESSION SCREENING 09/13/2024 INFLUENZA VACCINE (#1) 2025 Respiratory Syncytial Virus (RSV) Vaccine Pt: or over 60 yrs (1 - 1-dose 75+ series) 2029 HEPATITIS B VACCINE Aged Out No longe r eligible based on patient's age to complete this topic HIB VACCINE Aged Out No longer eligi ble based on patient's age to complete this topic HPV VACCINE Aged Out No longer eligi ble based on patient's age to complete this topic MENINGOCOCCAL (Group B) VACC INE SHARED DECISION-MAKING Aged Out No longer eligibl e based on patient's age to complete this topic MENINGOCOCCAL GROUPS A/C/Y/W VACCINE Aged Out No longer eligible b ased on patient's age to complete this topic Insurance [facility] Care Teams Software Configuration Manager Relationship Specialty Start Date End Date Jasmeet Joseph MD PCP - General 11/16/13
--- OUTSIDE RECORDS SUMMARY | 2025-05-07 09:53 | XMS_ITS | Clinical Summary ---
Author Organization [facility] [place] [address] Address [address] [place] [address] Care Team Providers Care Tunnel Worker Name Role Phone Jasmeet Joseph MD Primary Care Provider [phone] Allergies Active Allergy Reactions Criticality Noted Date Comments Hydrocodone-Acetaminophen Nausea & Vomiting Low Medications valsartan-hydroch lorothiazide (DIOVAN-HCT) 320-12.5 mg per tablet Take 1 tablet by mouth daily 4 Active buPROPion XL (WELLBUTRIN XL) 300 mg 24 hr tablet Take 1 tablet (300 mg total) by mouth every morning 4 Active fenofibrate (TRIGLIDE) 160 mg tablet Take 1 tablet (160 mg total) by mouth daily 4 Active metFORMIN XR (GLUCOPHAGE XR) 500 mg 24 hr tablet Take 2 tablets (1,000 mg total) by mouth 2 (two) times a day 4 Active carvediloL (COREG) 25 mg tablet Take 1 tablet (25 mg total) by mouth every 12 (twelve) hours 4 Active amLODIPine (NORVASC) 10 mg tablet TAKE 1 & 1/2 (ONE & ONE-HALF) TABLETS BY MOUTH ONCE DAILY 3 Active atorvastatin (LIPITOR) 10 mg tablet Take 1 tablet (10 mg total) by mouth daily 3 Active escitalopram (LEXAPRO) 10 mg tablet Take 1 tablet (10 mg total) by mouth daily 4 Active oxyBUTYnin XL (DITROPAN-XL) 10 mg 24 hr tablet Take 1 tablet (10 mg total) by mouth daily 4 Active albuterol HFA (PROVENTIL HFA,VENTOLIN HFA,PROAIR HFA) 90 mcg/actuation inhaler Inhale 2 puffs every 6 (six) hours as needed for wheezing Active fluticasone propionate (FLONASE) 50 mcg/actuation nasal spray Administer 1 spray into each nostril daily Active tamsulosin (FLOMAX) 0.4 mg extended release capsule Take 1 capsule (0.4 mg total) by mouth daily 4 Active calcium carbonate-vitamin D3 2,500 mg (1,000 mg elemental)-800 unit tablet Take by mouth Acti ve cyanocobalamin, vitamin B-12, 1,000 mcg/mL drops Take by mouth Active sm-srh-fscvr-K1-l ycopen-lutein [id number] mcg tablet Take by mouth Activ e om 4-nqa-xtg-B12-FA- B6-phytost 500 mg-500 mcg -1 mg-12.5 mg capsule Take by mouth Active aspirin (Enteric Coated Aspirin) 81 mg enteric coated tabletIndications :Coronary artery calcification seen on CAT scan Take 1 tablet (81 mg total) by mouth daily 4 Active nitroglycerin (NITROSTAT) 0.[address] 1 tablet (0.4 mg total) under the tongue every 5 (five) minutes as needed for chest pain May repeat dose q 5 min, up to 3 doses total 30 tablet 1 5 10/05/19 26 Active Active Problems Problem Noted Date Diagnosed Date Chest pain 10/05/2024 NDIAYE (dyspnea on exertion) 10/05/2024 Abnormal stress test 10/05/2024 Coronary artery calcification seen on CAT scan 0 12/06/2023 Essential hypertension 12/06/2023 Mixed hyperlipidemia 12/06/2023 Surgical History Surgery Date Site/Laterality Comments HERNIA REPAIR VASECTOMY Medical History Medical History Date Comments Anxiety Cataract Depression Diabetes mellitus (HCC) Hypertension Chest pain NDIAYE (dyspnea on exertion) Abnormal stress test GERD (gastroesophageal reflux disease) Type 2 diabetes mellitus Family History Medical History Relation Name Comments Anemia Father Bernardino Wheeler Cancer Father Bernardino Weheler Diabetes Father Bernardino Wheeler Hearing loss Father Bernardino Wheeler Heart attack Father Bernardino Wheeler Alzheimer's disease Mother Leny Wheeler Arthritis Mother Leny Wheeler Cancer Mother Leny Wheeler Hypertension Mother Leny Wheeler Memory loss Mother Leny Wheeler Alzheimer's disease Mother's Sister 1 Brea Mina Alzheimer's disease Mother's Sister 2 [place] Early Asthma Sister Breonna Salas COPD Sister Breonna Salas Relation Name Status Comments Father Bernardino Wheeler Mother Leny Wheeler Mother's Sister 1 Brea Mina Mother's Sister 2 Estjustina Early Sister Breonna Salas Social History Tobacco Use Types Packs/Day Years Used Date Smoking Tobacco: Former Cigarettes 1 30 Smokeless Tobacco: Never Tobacco Cessation:Counseling Given: Not Answered Personal Safety Answer Date Recorded Have you ever been in or are you currently in a harmful physical or emotional relationship or is someone making you feel afraid or unsafe? 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 Gender Identity Not on file Sexual Orientation Not on file Obstetrics History Last Filed Vital Signs Vital Sign Reading Time Taken Comments Blood Pressure 120/70 12/04/2024 9:58 AM CDT Pulse 63 12/04/2024 9:58 AM CDT Temperature 37.3 C (99.2 F) 10/11/2024 10:05 AM POCKET MAKER Respiratory Rate 18 10/11/2024 10:05 AM POCKET MAKER Oxygen Saturation 96% 12/04/2024 9:58 AM CDT Inhaled Oxygen Concentration - - Weight 91.9 kg (202 lb 9.6 oz) 12/04/2024 9:58 A M CDT Height 170.2 cm (5' 7) 12/04/2024 9:58 AM CDT Body Mass Index 31.73 12/04/2024 9:58 AM CDT Plan of Treatment Health Maintenance Due Date Last Done Comments Colon Cancer Screening-Colonoscopy 1955 Depression Screening 1954 Hepatitis C Screening 1954 DTaP/Tdap/Td Vaccine (1 - Tdap) 1965 Hepatitis B Screening 1972 Zoster Vaccine (2 of 2) 11/03/2018 09/08/2018 Abdominal Aortic Aneurysm (A AA) Screen 2019 Well Visit 65+ 2019 Covid-19 Vaccine (2023-2 5 season) 2024 05/29/2022, 12/13/2021, 06/13/2021, Additional history exists Influenza Vaccine (#1) 2025 , 06/11/2022, 05/17/2021, Additional history exists Fall Risk Assessment 10/11/2025 10/11/2024 Pneumococcal vaccine 65+ Completed 03/31/2023, 12/2018 Medical Devices Implanted Type [employer] Sales Representative Device Identifier Shelf Expiration Date Model / Serial / Lot [facility] [employer] [facility] Device Closure Vascade Od5 Fr Femoral Artery [id number] - [id number] Implanted:Qty: 1 on 10/11/2024 by Hao Mcmahon MD at [facility] 06/20/2026 [id number] / / [id number] Insurance MEDICARE [facility] Care Teams Tunnel Worker Relationship Specialty Start Date End Date Jasmeet Joseph MD [address] [address] PCP - General Family Medicine 10/07/23
--- OUTSIDE RECORDS SUMMARY | 2025-05-07 09:53 | XMS_ITS | Clinical Summary ---
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 Gender Identity Not on file Sexual Orientation Not on file Plan of Treatment Health Maintenance Due Date Last Done Comments Colorectal Cancer Screening Colonoscopy (10 Years) 1954 Hepatitis C 1972 DTaP, Tdap and Td Vaccines ( 1 - Tdap) 1973 Pneumococcal Vaccine: 50+ Ye ars (1 of 1 - PCV) 2004 Zoster Vaccines (1 of 2) 2004 COVID-19 Vaccine ( - 2023-2 5 season) 2024 RSV Immunization or 60+ Years (1 - 1-dose 75+ series) 2029 Meningococcal B Vaccine Aged Out No l onger eligible based on patient's age to complete this topic Meningococcal Vaccine Aged Out No evangelina andrés eligible based on patient's age to complete this topic RSV Immunizations Under 20 Months Aged Out No longer eligible based on patient's age to complete this topic
== END ==
PROVIDERS: PCP Family Medicine; Visit Provider Family Medicine
DX: M54.41 Lumbago with sciatica, right side (principal); G89.29 Other chronic pain; M25.551 Pain in right hip; M47.896 Other spondylosis, lumbar region
CPT/HCPCS: 72110; 73502

== ENCOUNTER 2025-08-06 02:05 | Day surgery (SDC) | payer MEDICARE, OTHER, SELFPAY ==
[2025-08-06 10:11] VITALS: BP 147/52; PULSE 57; RESP 18; TEMP 36.1; O2SAT 98
[2025-08-06] MEDS: LACTATED RINGERS 1,000 ML 150 ML IV CONT (10:21)
--- NOTE | 2025-08-06 10:33 | WPDANESEPPF ---
Anes - Initial Pre Proc Eval Procedure: Operation Date: 08/06/25 11:30 Proposed Procedures p Screening Colonoscopy - Tristen Galeana MD Date/Time: 08/06/25 10:33 Surgeon: Tristen Galeana MD Pre Op Diagnosis: Personal history of colon polyps, unspecified Patient Data Age: 70 Gender: M Height: 1.7 m Weight: 84.5 kg Last Vital Signs Temp 97 F L 08/06/25 10:11 Pulse 57 L 08/06/25 10:11 Resp 18 08/06/25 10:11 BP 147/52 H 08/06/25 10:11 Pulse Ox 98 08/06/25 10:11 O2 Del Method Room Air 08/06/25 10:11 Allergies Allergy/AdvReac Type Severity Reaction Status Date / Time hydrocodone AdvReac Unknown Gastrointestinal Verified 08/06/25 10:08 Upset acetaminophen (From Vicodin) AdvReac Gastrointestinal Verified 08/06/25 10:08 Upset Home Medications ?Medication ?Instructions ?Recorded ?Confirmed ?Type cholecalciferol (vitamin D3) 50 2,000 unit PO DAILY 08/02/23 08/01/25 History mcg (2,000 unit) capsule cyanocobalamin (vitamin B-12) 1,000 mcg PO DAILY 08/02/23 08/01/25 History 1,000 mcg tablet fluticasone propionate 50 1 spray intranasal BID #48 grams 08/02/23 08/01/25 Rx mcg/actuation nasal spray,suspension (Flonase Allergy Relief) bupropion HCl 300 mg 24 hr tablet, 300 mg PO QAM #90 tabs 09/11/24 08/01/25 Rx extended release (Wellbutrin XL) metformin 500 mg tablet,extended 1,000 mg (2 x 500 mg) PO BID #360 10/23/24 08/01/25 Rx release 24 hr tabs escitalopram oxalate 10 mg tablet 10 mg PO DAILY #90 tabs 11/20/24 08/01/25 Rx (Lexapro) carvedilol 25 mg tablet 25 mg PO Q12H #180 tabs 12/04/24 08/06/25 Rx atorvastatin 10 mg tablet 10 mg PO DAILY #90 tabs 12/25/24 08/01/25 Rx albuterol sulfate 90 mcg/actuation 1 - 2 inh inhalation Q4-6H PRN 01/29/25 08/01/25 Rx aerosol inhaler (Ventolin HFA) shortness of breath or wheezing #8.5 grams aspirin 81 mg tablet 81 mg PO DAILY 03/07/25 08/01/25 History tamsulosin 0.4 mg capsule 0.4 mg PO QHS #90 caps 03/26/25 08/01/25 Rx fenofibrate 160 mg tablet 160 mg PO DAILY #90 tabs 05/03/25 08/01/25 Rx amlodipine 10 mg tablet 15 mg (1.5 x 10 mg) PO DAILY #135 05/07/25 08/01/25 Rx tabs oxybutynin chloride 10 mg 10 mg PO DAILY #90 tabs 08/06/25 Rx tablet,extended release 24 hr valsartan 320 1 tablet PO DAILY #90 tabs 08/06/25 Rx mg-hydrochlorothiazide 12.5 mg tablet Laboratory Tests 08/06/25 10:19 POC Capillary Glucose 112 H mg/dl (65-105) Patient hx anesthesia problems: none Family hx anesthesia problems: none Results Review: All pre-operative results and documents have been reviewed as part of the pre-operative evaluation. [facility] Past Medical History Medical History Chronic kidney disease (CKD) stage G3a/A3, moderately decreased glomerular filtration rate (GFR) between 45-59 mL/min/1.73 square meter and albuminuria creatinine ratio greater than 300 mg/g (~02/21/24) BUN 21, creatinine 1.53 with GFR 49 on 02/21/2024. BUN 27, creatinine 1.37 with GFR 55 on 09/27/2024. The BUN 27, creatinine 1.78 with GFR 40 on 05/28/2025. Chronic kidney disease (CKD) stage G3b/A3, moderately decreased glomerular filtration rate (GFR) between 30-44 mL/min/1.73 square meter and albuminuria creatinine ratio greater than 300 mg/g BUN 21, creatinine 1.53 with GFR 49 on 02/21/2024. BUN 27, creatinine 1.37 with GFR 55 on 09/27/2024. The BUN 27, creatinine 1.78 with GFR 40 on 05/28/2025. BMI 29.0-29.9,adult Edema, lower extremity Diastolic dysfunction without heart failure Screening for diabetic retinopathy no retinopathy 12/27/2023. No retinopathy 10/19/2024. no retinopathy 04/23/2025. No retinopathy 05/30/2025. Coronary artery calcification seen on CAT scan (~10/04/23) coronary artery calcifications on CT of the chest 10/04/2023. Lexiscan stress test 03/01/2024 with ejection fraction 62% with no EKG changes. Small area of apical and apical lateral ischemia noted. Echo on 02/28/2024 with ejection fraction 61% with mild LVH and mild diastolic dysfunction. Catheterization September, with mild irregularities in the coronary arteries. DISH (diffuse idiopathic skeletal hyperostosis) [facility] noted on CT of the chest 10/04/2023. Calcification right Lobe of thyroid. Compression fracture T10 noted. Protein in urine 2+ protein 07/28/2023. 1+ protein on urinalysis 02/21/2024. 2+ protein on 09/27/2024. 2+ protein 05/28/2025. At moderate risk for fall Anemia hemoglobin 12.8 on 07/28/2023. Hemoglobin 13.6 on 02/21/2024. Hemoglobin 13.1 with iron 71 with 19% saturation and ferritin 161 on 09/27/2024. Hemoglobin 12.2 with iron 65 with 18% saturation and ferritin 181 with vitamin B12 1066 and folic acid 16.5 on 05/28/2025. Encounter for prostate cancer screening PSA 2.02 on 07/28/2023. PSA 1.56 on 09/27/2024. Abnormal computed tomography angiography (CTA) 10 mm nodule right upper lobe with need for recheck in 3 months. Right upper lobe nodule resolved on repeat CT of the chest 10/04/2023. ERIC (acute kidney injury) Pneumonia COVID (~06/01/23) Second episode with pneumonia 06/05/2023. Rosacea BMI 32.0-32.9,adult Chronic low back pain with right-sided sciatica X-ray of the lumbar spine on 07/27/2022 with disc space narrowing at L1-L2 and L5-S1 with moderate spondylosis. X-ray of the lumbar spine on 05/07/2025 reveals diffuse severe degenerative disc disease and arthritis. Chronic pain of right hip X-ray of the right hip and pelvis on 07/27/2022 reveals mild osteoarthritis of both hips. X-ray of the right hip on 05/07/2025 reveals mild to moderate osteoarthritis. Acute bronchitis COVID-19 (03/23/22) tested positive on 03/24/2022. Vaccinated. Contusion (~12/2021) left knee after fall Obesity (BMI 30.0-34.9) Persistent microalbuminuria associated with type 2 diabetes mellitus Microalbumin ratio elevated at 1238 on 07/28/2023. Elevated at 885 on 09/27/2024. Elevated at 736 on 05/28/2025. Adult BMI 33.0-33.9 kg/sq m BMI 31.0-31.9,adult Right shoulder pain Body mass index (bmi) 38.0-38.9, adult (05/16/19) Essential (primary) hypertension Mixed hyperlipidemia Total cholesterol 193, triglycerides 173, HDL 34, LDL 130 on 12/10/2021. cholesterol 134, triglycerides 118, HDL 36, LDL 78 with ratio 3.7 on 01/08/2023. Total cholesterol 130, HDL 39, triglycerides 78, LDL 75 with ratio 3.3 on 07/28/2023. Cholesterol 126, triglycerides 107, HDL 34, LDL 73 with ratio 3.7 on 02/21/2024.Cholesterol 119, triglycerides 91, HDL 40, LDL 62 with ratio 3.0 on 09/27/2024. Cholesterol 124, triglycerides 86, HDL 36, LDL 71 with ratio of 3.4 on 05/28/2025. Encounter for prostate cancer screening Type 2 diabetes mellitus without complication, without long-term current use of insulin Glucose 104 and hemoglobin A1c 5.3 on 12/10/2021. Glucose 100 with hemoglobin A1c 5.3 on 01/08/2023. Glucose 92 with hemoglobin A1c 5.2 and microalbumin ratio of 1238 on 07/28/2023. Fasting glucose 94 with hemoglobin A1c 5.7 on 02/21/2024. Glucose 101, hemoglobin A1c 5.5 with urine microalbumin ratio of 885 with GFR 55 on 09/27/2024. Glucose 93, hemoglobin A1c 5.5, urine microalbumin ratio of 736 with GFR 40 on 05/28/2025. Surgical History Surgical History History of cataract surgery both eyes- December 12 right eye December 19 left eye Family History Family History Other Family history of arthritis Hypertension Social History Social History Smoking packs per day: 1.5 Smoking cigarettes per day: 30.0 Years smoked: 20 Smoking pack-years: 30.00 Smoking status: Former smoker Tobacco type: cigarettes Smoking end date: 09/13/91 Alcohol intake: never Alcohol use details: one or two beers a year Substance use: former Substance use type: marijuana Lack of Transportation: YES Lack of Food: Never True Current Housing: I Have Housing Concerned About Future Housing: No Difficulty Paying Gas/Electric Bills: No Difficulty Paying for Meds: No Currently Unemployed: No Education: Master's Degree or Higher Difficulty w/ Childcare or Family Care: No Living arrangements: with family Gender identity (if verbalized by the patient): Male Spiritual care concerns: No Anes - Eval Final PreProcedure Day of Procedure 08/06/25 10:33 Patient weight: overweight Lungs: normal air movement Airway: Mallampati scale class II Neurological: alert and oriented Last oral intake: >/= 8 hours ASA classification: III Emergent: no Anesthetic plan: proceed Anesthesia type and monitoring: general GIVS and standard monitoring Results Review: All pre-operative results and documents have been reviewed as part of the pre-operative evaluation. HTN, hyperlipidemia, DM fsbs 112, CKD stage 3. Active w 1-2 fos, no cp or sob. Informed Consent: The patient's anesthetic plan and its attendant risks and benefits were discussed with the patient/family/POA. Questions were solicited and answers provided to the satisfaction of the patient/family/POA.
--- NOTE | 2025-08-06 10:47 | PM.IMHP ---
H&P: HPI History of Present Illness Date/Time: 08/06/25 10:47 Chief Complaint: Family history of colon polyps Narrative: This patient has family history of colorectal polyps. His father was found to have polyps at age 60. The patient had his last colonoscopy 5 years ago, and no polyps were found. Review of Systems Review of Systems: All systems reviewed & are unremarkable except as noted in HPI and below PMFSH Past Medical History Medical History Chronic kidney disease (CKD) stage G3a/A3, moderately decreased glomerular filtration rate (GFR) between 45-59 mL/min/1.73 square meter and albuminuria creatinine ratio greater than 300 mg/g (~02/21/24) BUN 21, creatinine 1.53 with GFR 49 on 02/21/2024. BUN 27, creatinine 1.37 with GFR 55 on 09/27/2024. The BUN 27, creatinine 1.78 with GFR 40 on 05/28/2025. Chronic kidney disease (CKD) stage G3b/A3, moderately decreased glomerular filtration rate (GFR) between 30-44 mL/min/1.73 square meter and albuminuria creatinine ratio greater than 300 mg/g BUN 21, creatinine 1.53 with GFR 49 on 02/21/2024. BUN 27, creatinine 1.37 with GFR 55 on 09/27/2024. The BUN 27, creatinine 1.78 with GFR 40 on 05/28/2025. BMI 29.0-29.9,adult Edema, lower extremity Diastolic dysfunction without heart failure Screening for diabetic retinopathy no retinopathy 12/27/2023. No retinopathy 10/19/2024. no retinopathy 04/23/2025. No retinopathy 05/30/2025. Coronary artery calcification seen on CAT scan (~10/04/23) coronary artery calcifications on CT of the chest 10/04/2023. Lexiscan stress test 03/01/2024 with ejection fraction 62% with no EKG changes. Small area of apical and apical lateral ischemia noted. Echo on 02/28/2024 with ejection fraction 61% with mild LVH and mild diastolic dysfunction. Catheterization September, with mild irregularities in the coronary arteries. DISH (diffuse idiopathic skeletal hyperostosis) [facility] noted on CT of the chest 10/04/2023. Calcification right Lobe of thyroid. Compression fracture T10 noted. Protein in urine 2+ protein 07/28/2023. 1+ protein on urinalysis 02/21/2024. 2+ protein on 09/27/2024. 2+ protein 05/28/2025. At moderate risk for fall Anemia hemoglobin 12.8 on 07/28/2023. Hemoglobin 13.6 on 02/21/2024. Hemoglobin 13.1 with iron 71 with 19% saturation and ferritin 161 on 09/27/2024. Hemoglobin 12.2 with iron 65 with 18% saturation and ferritin 181 with vitamin B12 1066 and folic acid 16.5 on 05/28/2025. Encounter for prostate cancer screening PSA 2.02 on 07/28/2023. PSA 1.56 on 09/27/2024. Abnormal computed tomography angiography (CTA) 10 mm nodule right upper lobe with need for recheck in 3 months. Right upper lobe nodule resolved on repeat CT of the chest 10/04/2023. ERIC (acute kidney injury) Pneumonia COVID (~06/01/23) Second episode with pneumonia 06/05/2023. Rosacea BMI 32.0-32.9,adult Chronic low back pain with right-sided sciatica X-ray of the lumbar spine on 07/27/2022 with disc space narrowing at L1-L2 and L5-S1 with moderate spondylosis. X-ray of the lumbar spine on 05/07/2025 reveals diffuse severe degenerative disc disease and arthritis. Chronic pain of right hip X-ray of the right hip and pelvis on 07/27/2022 reveals mild osteoarthritis of both hips. X-ray of the right hip on 05/07/2025 reveals mild to moderate osteoarthritis. Acute bronchitis COVID-19 (03/23/22) tested positive on 03/24/2022. Vaccinated. Contusion (~12/2021) left knee after fall Obesity (BMI 30.0-34.9) Persistent microalbuminuria associated with type 2 diabetes mellitus Microalbumin ratio elevated at 1238 on 07/28/2023. Elevated at 885 on 09/27/2024. Elevated at 736 on 05/28/2025. Adult BMI 33.0-33.9 kg/sq m BMI 31.0-31.9,adult Right shoulder pain Body mass index (bmi) 38.0-38.9, adult (05/16/19) Essential (primary) hypertension Mixed hyperlipidemia Total cholesterol 193, triglycerides 173, HDL 34, LDL 130 on 12/10/2021. cholesterol 134, triglycerides 118, HDL 36, LDL 78 with ratio 3.7 on 01/08/2023. Total cholesterol 130, HDL 39, triglycerides 78, LDL 75 with ratio 3.3 on 07/28/2023. Cholesterol 126, triglycerides 107, HDL 34, LDL 73 with ratio 3.7 on 02/21/2024.Cholesterol 119, triglycerides 91, HDL 40, LDL 62 with ratio 3.0 on 09/27/2024. Cholesterol 124, triglycerides 86, HDL 36, LDL 71 with ratio of 3.4 on 05/28/2025. Encounter for prostate cancer screening Type 2 diabetes mellitus without complication, without long-term current use of insulin Glucose 104 and hemoglobin A1c 5.3 on 12/10/2021. Glucose 100 with hemoglobin A1c 5.3 on 01/08/2023. Glucose 92 with hemoglobin A1c 5.2 and microalbumin ratio of 1238 on 07/28/2023. Fasting glucose 94 with hemoglobin A1c 5.7 on 02/21/2024. Glucose 101, hemoglobin A1c 5.5 with urine microalbumin ratio of 885 with GFR 55 on 09/27/2024. Glucose 93, hemoglobin A1c 5.5, urine microalbumin ratio of 736 with GFR 40 on 05/28/2025. Surgical History Surgical History History of cataract surgery both eyes- December 12 right eye December 19 left eye Family History Family History Other Family history of arthritis Hypertension Social History Social History Smoking packs per day: 1.5 Smoking cigarettes per day: 30.0 Years smoked: 20 Smoking pack-years: 30.00 Smoking status: Former smoker Tobacco type: cigarettes Smoking end date: 09/13/91 Alcohol intake: never Alcohol use details: one or two beers a year Substance use: former Substance use type: marijuana Lack of Transportation: YES Lack of Food: Never True Current Housing: I Have Housing Concerned About Future Housing: No Difficulty Paying Gas/Electric Bills: No Difficulty Paying for Meds: No Currently Unemployed: No Education: Master's Degree or Higher Difficulty w/ Childcare or Family Care: No Living arrangements: with family Gender identity (if verbalized by the patient): Male Spiritual care concerns: No Meds Home Medications and Allergies Home Medications ?Medication ?Instructions ?Recorded ?Confirmed ?Type cholecalciferol (vitamin D3) 50 2,000 unit PO DAILY 08/02/23 08/01/25 History mcg (2,000 unit) capsule cyanocobalamin (vitamin B-12) 1,000 mcg PO DAILY 08/02/23 08/01/25 History 1,000 mcg tablet fluticasone propionate 50 1 spray intranasal BID #48 grams 08/02/23 08/01/25 Rx mcg/actuation nasal spray,suspension (Flonase Allergy Relief) bupropion HCl 300 mg 24 hr tablet, 300 mg PO QAM #90 tabs 09/11/24 08/01/25 Rx extended release (Wellbutrin XL) metformin 500 mg tablet,extended 1,000 mg (2 x 500 mg) PO BID #360 10/23/24 08/01/25 Rx release 24 hr tabs escitalopram oxalate 10 mg tablet 10 mg PO DAILY #90 tabs 11/20/24 08/01/25 Rx (Lexapro) carvedilol 25 mg tablet 25 mg PO Q12H #180 tabs 12/04/24 08/06/25 Rx atorvastatin 10 mg tablet 10 mg PO DAILY #90 tabs 12/25/24 08/01/25 Rx albuterol sulfate 90 mcg/actuation 1 - 2 inh inhalation Q4-6H PRN 01/29/25 08/01/25 Rx aerosol inhaler (Ventolin HFA) shortness of breath or wheezing #8.5 grams aspirin 81 mg tablet 81 mg PO DAILY 03/07/25 08/01/25 History tamsulosin 0.4 mg capsule 0.4 mg PO QHS #90 caps 03/26/25 08/01/25 Rx fenofibrate 160 mg tablet 160 mg PO DAILY #90 tabs 05/03/25 08/01/25 Rx amlodipine 10 mg tablet 15 mg (1.5 x 10 mg) PO DAILY #135 05/07/25 08/01/25 Rx tabs oxybutynin chloride 10 mg 10 mg PO DAILY #90 tabs 08/06/25 Rx tablet,extended release 24 hr valsartan 320 1 tablet PO DAILY #90 tabs 08/06/25 Rx mg-hydrochlorothiazide 12.5 mg tablet Allergies Allergy/AdvReac Type Severity Reaction Status Date / Time hydrocodone AdvReac Unknown Gastrointestinal Verified 08/06/25 10:08 Upset acetaminophen (From Vicodin) AdvReac Gastrointestinal Verified 08/06/25 10:08 Upset Vital Signs Vital Signs - 24 hr 08/06/25 10:11 Temperature 97 F L Pulse Rate 57 L Respiratory Rate 18 Blood Pressure 147/52 H Pulse Oximetry 98 Oxygen Delivery Room Air Exam Const: General: cooperative and healthy appearing Resp: Effort & Inspection: normal respiratory effort and able to speak in complete sentences Auscultation: clear to auscultation bilaterally Cardio: Rate: regular rate Rhythm: regular rhythm GI: Inspection: normal to inspection GI Palp: No No hepatosplenomegaly present Auscultation: normal bowel sounds Rectal Exam: deferred Skin: General skin exam: normal color Psych: Appearance: grossly normal Mental Status: mental status grossly normal Assessment and Plan Assessment and plan (1) Family history of colonic polyps: Code(s): Z83.71 - Family history of colonic polyps Status: Acute Assessment and Plan: The patient is deemed a good candidate for the procedure. Consent signed. Will proceed.
--- NOTE | 2025-08-06 11:06 | S_PTH ---
PATIENT: Brayden Wheeler LOC: [facility] #:[id number] AGE/SX: 70/M ROOM: RE08/06/[address]: Tristen Galeana MD : [id number] BED: DIS: 08/06/2025 SPEC #: [id number] RECD: 08/06/25 11:50 STATUS: DAMION REQ #: [id number] SHARON: 08/06/25 11:[address]: Tristen Galeana DEPT: [facility] Surgical RECD BY: Hiwot Davies ENTERED: 08/06/25 11:50 SP TYPE: Surgical OTHR DR: Jasmeet Joseph MD Tissues: A - Colon Polypectomy Procedures: Hematoxylin and Eosin Stain Gross and Microscopic Level 4
[2025-08-06 11:12] VITALS: BP 131/72; PULSE 55; RESP 17; O2SAT 97
[2025-08-06 11:22] VITALS: BP 143/84; PULSE 68; RESP 19; O2SAT 98
[2025-08-06 11:32] VITALS: BP 161/87; PULSE 56; RESP 20; O2SAT 97
== END 2025-08-06 11:41 | disposition home or self-care (01) ==
PROVIDERS: PCP Family Medicine; Referring Provider Family Medicine; Visit Provider Internal Medicine Gastroenterology
PROC: 0DJD8ZZ Inspection of Lower Intestinal Tract, Via Natural or Artificial Opening Endoscopic (ICD-10-PCS; CPT 45378; principal; 2025-08-06 11:30)
DX: Z12.11 Encounter for screening for malignant neoplasm of colon (principal); D12.2 Benign neoplasm of ascending colon; K64.8 Other hemorrhoids; K57.30 Diverticulosis of large intestine without perforation or abscess without bleeding; D64.9 Anemia, unspecified; E78.2 Mixed hyperlipidemia; E11.22 Type 2 diabetes mellitus with diabetic chronic kidney disease; I12.9 Hypertensive chronic kidney disease with stage 1 through stage 4 chronic kidney disease, or unspecified chronic kidney disease; N18.32 Chronic kidney disease, stage 3b; I11.9 Hypertensive heart disease without heart failure; I25.10 Atherosclerotic heart disease of native coronary artery without angina pectoris; G89.29 Other chronic pain; M54.31 Sciatica, right side; M25.551 Pain in right hip; L71.9 Rosacea, unspecified; Z79.84 Long term (current) use of oral hypoglycemic drugs; Z79.51 Long term (current) use of inhaled steroids; Z79.82 Long term (current) use of aspirin; Z98.890 Other specified postprocedural states; Z87.891 Personal history of nicotine dependence; Z87.19 Personal history of other diseases of the digestive system; Z83.719 Family history of colon polyps, unspecified
CPT/HCPCS: 45385; 82948; 88305; J2003; J2704; J7120